=== PATIENT | male | born 1960 | race Caucasian/White ===

== ENCOUNTER 2020-02-10 18:28 | Observation (INO) | payer OTHER ==
--- NOTE | 2020-02-10 18:57 | ER Document Report ---
ED Medical Screen (RME) - General Chief Complaint: Dizziness Stated Complaint: DIZZINESS Time Seen by Provider: 02/10/20 18:44 Information source: Patient Notes: Patient states he was sitting in the chair and had a sudden flash of light through his vision at about 5:30 PM and suddenly developed headache pain dizziness became diaphoretic and had nausea and vomiting. Patient states he has a heaviness in his head and his right arm. Patient also reports discomfort in the chest that he describes as a heaviness. hx: Hypertension, RA, diabetes, neuropathy I have greeted and performed a rapid initial assessment of this patient. A comprehensive ED assessment and evaluation of the patient, analysis of test results and completion of the medical decision making process will be conducted by additional ED providers. - Related Data Allergies/Adverse Reactions: No Known Allergies Allergy (Unverified 02/10/20 18:46) Physical Exam - Neurological Gerda Coma Scale Eye Opening: Spontaneous Frederick Coma Scale Verbal: Oriented Gerda Coma Scale Motor: Obeys Commands Gerda Coma Scale Total: 15 Speech: Normal Course - Re-evaluation Re-evalutation: 02/10/20 18:57 Stroke evaluation initiated, bedside nurse as well as charge nurse advised.
[2020-02-10 19:14] LABS: ABSOLUTE EOSINOPHILS # (AUTO) 0.1 10^3/uL (0.0-0.6); ABSOLUTE LYMPHOCYTES (AUTO) 1.5 10^3/uL (0.5-4.7); ABSOLUTE MONOCYTES (AUTO) 0.4 10^3/uL (0.1-1.4); ABSOLUTE NEUT (AUTO) 8.7 10^3/uL (1.7-8.2); BASOPHILS % (AUTO) 0.3 % (0-2); EOSINOPHILS % (AUTO) 0.5 % (0-6); HEMATOCRIT 37.7 % (37.9-51.0); HEMOGLOBIN 13.4 g/dL (13.5-17.0); LYMPHOCYTES % (AUTO) 14.2 % (13-45); MEAN CORPUSCULAR HEMOGLOBIN 30.2 pg (27.0-33.4); MEAN CORPUSCULAR HGB CONC 35.5 g/dL (32.0-36.0); MEAN CORPUSCULAR VOLUME 85 fl (80-97); MONOCYTES % (AUTO) 3.4 % (3-13); PLATELET COUNT 178 10^3/uL (150-450); RED BLOOD COUNT 4.42 10^6/uL (4.35-5.55); RED CELL DISTRIBUTION WIDTH 15.7 % (11.5-14.0); SEGMENTED NEUTROPHILS % (AUTO) 81.6 % (42-78); TOTAL CELLS COUNTED % (AUTO) 100 %; WHITE BLOOD COUNT 10.7 10^3/uL (4.0-10.5)
[2020-02-10 19:25] LABS: ALBUMIN 4.3 g/dL (3.5-5.0); ALKALINE PHOSPHATASE 104 U/L (38-126); ANION GAP 11 (5-19); ASPARTATE AMINO TRANSFERASE 43 U/L (17-59); BILIRUBIN,TOTAL 0.5 mg/dL (0.2-1.3); BLOOD UREA NITROGEN 25 mg/dL (7-20); CALCIUM 9.4 mg/dL (8.4-10.2); CARBON DIOXIDE 22 mmol/L (22-30); CHLORIDE 107 mmol/L (98-107); CREATINE KINASE 45 U/L (55-170); GLUCOSE 189 mg/dL (75-110); POTASSIUM 3.7 mmol/L (3.6-5.0); TOTAL PROTEIN 7.2 g/dL (6.3-8.2)
[2020-02-10 19:30] LABS: INTERNATIONAL RATION (INR) 1.09; PARTIAL THROMBOPLASTIN TIME 27.5 SEC (23.5-35.8); PROTHROMBIN TIME 14.1 SEC (11.4-15.4)
[2020-02-10 19:37] LABS: CREATINE KINASE MB 0.59 ng/mL (<4.55)
[2020-02-10 19:38] LABS: TROPONIN I < 0.012 ng/mL
--- NOTE | 2020-02-10 19:41 | RADIOLOGY REPORT (SQ) ---
EXAM DESCRIPTION: CT HEAD WITHOUT COMPLETED DATE/TIME: 02/10/2020 7:05 pm REASON FOR STUDY: ALEX, dizzy, vomiting COMPARISON: None. TECHNIQUE: Axial images acquired through the brain without intravenous contrast. Images reviewed wit h bone, brain and subdural windows. Images stored on PACS. All CT scanners at this facility use dose modulation, iterative reconstruction, and/or weight based d osing when appropriate to reduce radiation dose to as low as reasonably achievable (ALARA). [facility]: Dose Right [facility]: CareDose [facility]: Dose Right [facility]: Teradose 4D [facility]: Smart Burt RADIATION DOSE: CT Rad equipment meets quality standard of care and radiation dose reduction techniq ues were employed. CTDIvol: 53.2 mGy. DLP: 1177 mGy-cm.. LIMITATIONS: None. FINDINGS: VENTRICLES: Normal size and contour. CEREBRUM: No hemorrhage. No midline shift. Scattered chronic appearing hyper densities are noted in the white matter. No evidence for acute large vessel infarction. CEREBELLUM: No masses. No hemorrhage. No alteration of density. No evidence for acute infarction. EXTRA-AXIAL SPACES: No fluid collections. ORBITS AND GLOBE: No intra- or extraconal masses. Normal contour of globe without masses. CALVARIUM: No fracture. PARANASAL SINUSES: No fluid or mucosal thickening. SOFT TISSUES: No mass or hematoma. OTHER: No other significant finding. IMPRESSION: No hemorrhage. No midline shift. Scattered chronic appearing hyper densities are noted in the white matter, this may reflect small vessel ischemic changes or possibly demyelinating disease , correlate with clinical information. No evidence for acute large vessel infarction. EVIDENCE OF ACUTE STROKE: NO. TECHNICAL DOCUMENTATION: JOB ID: [id number] Quality ID # [id number]: Final reports with documentation of one or more dose reduction techniques (e.g., Au tomated exposure control, adjustment of the mA and/or kV according to patient size, use of iterative reconstruction technique) 2010 [employer]- All Rights Reserved Reading location - IP/workstation name: [email or web address]
--- NOTE | 2020-02-10 19:46 | RADIOLOGY REPORT (SQ) ---
EXAM DESCRIPTION: CHEST SINGLE VIEW COMPLETED DATE/TIME: 02/10/2020 7:20 pm REASON FOR STUDY: chest pain COMPARISON: None. TECHNIQUE: Single frontal radiographic view of the chest acquired. NUMBER OF VIEWS: One view. LIMITATIONS: None. FINDINGS: LUNGS AND PLEURA: No pneumothorax. No consolidation or pleural effusion. MEDIASTINUM AND HILAR STRUCTURES: No contour abnormalities. HEART AND VASCULAR STRUCTURES: Heart normal size. BONES: No acute findings. HARDWARE: None in the chest. OTHER: No other significant finding. IMPRESSION: NO ACUTE FINDINGS. TECHNICAL DOCUMENTATION: JOB ID: [id number] [place]-72 2010 [email or web address]- All Rights Reserved Reading location - IP/workstation name: [email or web address]
[2020-02-10] MEDS ORDERED: ASPIRIN 325 MG TABLET PO ONE (20:37)
[2020-02-10] MEDS ORDERED: ONDANSETRON HCL INJ/PF 4 MG/2 ML SDV IV ONE (20:37)
[2020-02-10] MEDS ORDERED: NORMAL SALINE 500 ML IV ONE (20:38)
--- NOTE | 2020-02-10 20:41 | ER Document Report ---
ED Dizziness/Weakness - General Chief Complaint: S/S of Possible Stroke Stated Complaint: DIZZINESS Time Seen by Provider: 02/10/20 18:44 Mode of Arrival: Medic Information source: Patient Notes: 59-year-old man presents to the emergency department history of sudden onset of dizziness, weakness and nausea with vomiting at approximately 5 PM today. States he was watching TV when as sudden flash of discomfort hit his head, he complained of headache with blurring of vision, weakness greater on the right side and nausea with multiple episodes of vomiting. He was able to call 911 and was brought to the emergency department as a possible stroke. Patient has a history of hypertension and diabetes mellitus. He states that his symptoms were severe, unable to see or balance himself at first. - Related Data Allergies/Adverse Reactions: No Known Allergies Allergy (Unverified 02/10/20 18:46) Past Medical History - General Information source: Patient - Social History Smoking Status: Never Smoker Family History: Reviewed & Not Pertinent Patient has suicidal ideation: No Patient has homicidal ideation: No - Past Medical History Cardiac Medical History: Reports: Hx Hypertension Endocrine Medical History: Reports: Hx Diabetes Mellitus Type 2 Review of Systems - Review of Systems Notes: Constitutional: Negative for fever. HENT: Negative for sore throat. Eyes: Negative for visual changes. Cardiovascular: Negative for chest pain. Respiratory: Negative for shortness of breath. Negative cough Gastrointestinal: + Nausea, + vomiting episodes Genitourinary: Negative for dysuria. Musculoskeletal: Negative for back pain. Skin: Negative for rash. Neurological: +headaches, +weakness, + dizziness, + wearing a vision 10 point ROS negative except as marked above and in HPI. Physical Exam - Vital signs Vitals: Pulse Ox 100 02/10/20 18:28 - Notes Notes: PHYSICAL EXAMINATION: Physical Exam: General: Well-nourished well-developed 59-year-old man in no acute distress HEENT: NC/AT, pupils equal round and reactive to light, MM moist,nares clear, oropharynx clear, airway patent, no facial asymmetry Neck: supple, no adenopathy, no masses. Good range of motion Lungs: clear, no wheezing, no rales no rhonchi CVS: Regular rate and rhythm no murmur gallop or rub Abdomen: Soft, active, nontender, no masses, no hepatosplenomegaly Ext: No edema, clubbing or cyanosis. Neuro: Alert and responsive, moving all 4 extremities on command, cranial nerves intact, Normal speech, 5 out of 5 strength in both the distal and proximal upper and lower extremities bilaterally. Sensation is grossly intact throughout. F vandana to nose testing normal. Pronator drift normal. Skin: Intact no open lesions, no rash PSYCH: Normal mood, normal affect. Course - Re-evaluation Re-evalutation: 02/10/20 21:22 Patient has improved significantly after IV Zofran and aspirin. Given him a [address] scan negative for acute stroke findings, scattered densities in the white matter, may represent small vessel ischemic changes or possibly demyelinating disease. Patient had no known history of abnormal findings. I have discussed with the patient being brought into the hospital and having further evaluation and treatment for possible TIA. Patient is in agreement with that plan and the hospitalist is contacted. will admit the patient to the hospital for further evaluation and treatment. 02/10/20 21:27 Patient has NIH score of 0, he is not a candidate for TPA, headache, dizziness, blurred vision and weakness have resolved. 02/11/20 01:23 Patient was initially admitted, however, it was discovered that the MRI machine is down indefinitely. Was asked see if the patient can be transferred to a another facility. [facility] and spoke with the hospitalist Dr. Nicole. Dr. Nicole notes that given the patient's improvement of symptoms, he believes that the patient could be admitted at [facility] for Dopplers, monitoring, echo and if we are concerned about posterior circulation CTA. He is stated that we should contact the neurologist to see if neurologist has a strong concern regarding MRI. Neurology supervisor photocomposition provider Ms. Michael WILLSON was contacted and after a discussion of the patient agreed that MRI was not needed and this particular case given the transient nature of symptoms and resolution. I am contacting the hospitalist, and explained that the hospitalist and neurologist at [facility] position that "MRI is not vital in the work-up of this resolved symptom neurologic presentation". states that if the patient is understanding he will not get an MRI and is comfortable staying at [facility] he will admit him here. I have explained to the patient that we have no MRI machine, that neurology and hospitalist at [facility] are of the opinion that an MRI is not essential at this time. The patient states that he is fine with staying at [facility]. I have spoken with , he will admit the patient. - Vital Signs Vital signs: Temp Pulse Resp BP Pulse Ox 97.7 F 69 15 127/73 H 98 02/10/20 18:35 02/10/20 19:19 02/11/20 01:01 02/11/20 01:01 02/11/20 00:01 - Laboratory Result Diagrams: 02/10/20 18:54 02/10/20 18:54 Laboratory results interpreted by me: 02/10/20 02/10/20 02/10/20 18:54 18:54 21:50 WBC 10.7 H Hgb 13.4 L Hct 37.7 L RDW 15.7 H Absolute Neuts (auto) 8.7 H Seg Neutrophils % 81.6 H BUN 25 H Glucose 189 H ALT 58 H Creatine Kinase 45 L 44 L 02/10/20 21:25 I have reviewed laboratory data and used this information for the treatment decisions regarding the patient. - Diagnostic Test Radiology reviewed: Image reviewed, Reports reviewed - Chest x-ray: No acute ca rdiopulmonary findings CT head without contrast: Scattered densities in the white matter, may represent small vessel ischemic changes or possibly demyelinating disease. No findings of acute large vessel stroke. - EKG Interpretation by [place] EKG shows normal: Sinus rhythm - Rate 75, multiple PVCs, no acute ST or T wave abnormalities seen. Discharge - Discharge Clinical Impression: Transient neurological symptoms, Dizziness, Blurred vision, bilateral Headache Qualifiers: Headache type: unspecified Headache chronicity pattern: episodic headache Intractability: not intractable Qualified Code(s): R51 - Headache Condition: Good Disposition: ADMITTED INPATIENT Admitting Provider: Liliya (Hospitalist) Unit Admitted: [facility]
--- NOTE | 2020-02-10 21:38 | EKG REPORT ---
SEVERITY:- ABNORMAL ECG - SINUS RHYTHM : Confirmed by: Neil Aparicio MD 10-Feb-2020 21:37:26
[2020-02-10] MEDS ORDERED: ONDANSETRON HCL INJ/PF 4 MG/2 ML SDV IV PRN (22:11)
[2020-02-10] MEDS ORDERED: MAGNESIUM HYDROXIDE SUSP 30 ML UDCUP PO PRN (22:11)
[2020-02-10] MEDS ORDERED: LORAZEPAM INJ 2 MG/1 ML VIAL IV PRN (22:20)
[2020-02-10] MEDS ORDERED: MAG HYDROX/AL HYDROX/SIMETH SUSP 30 ML UDCUP PO PRN (22:20)
[2020-02-10] MEDS ORDERED: ACETAMINOPHEN 325 MG TABLET PO PRN (22:20)
[2020-02-10] MEDS ORDERED: HYDRALAZINE HCL INJ/PF 20 MG/1 ML SDV IV PRN (22:20)
[2020-02-10] MEDS ORDERED: GLUCAGON,HUMAN RECOMB 1 MG INJ IM PRN (22:21)
[2020-02-10] MEDS ORDERED: DEXTROSE 50%-WATER 25 GM/50 ML DISP.SYRIN IV PRN ×2 (22:21)
[2020-02-10] MEDS ORDERED: DEXTROSE 40% GEL 15 GM TUBE PO PRN ×2 (22:21)
[2020-02-11] MEDS: CLOPIDOGREL BISULFATE 75 MG TABLET PO SCH ×2 (00:31→09:41)
[2020-02-11] MEDS: FAMOTIDINE 20 MG TABLET PO SCH ×3 (00:31→22:33)
[2020-02-11] MEDS: INSULIN REG, HUMAN 100 UNIT/ML 3 ML VIAL (PYX) SUBCUT SCH ×5 (00:38→22:33)
[2020-02-11 04:36] LABS: HEMATOCRIT 34.3 % (37.9-51.0); HEMOGLOBIN 12.1 g/dL (13.5-17.0); MEAN CORPUSCULAR HEMOGLOBIN 30.2 pg (27.0-33.4); MEAN CORPUSCULAR HGB CONC 35.2 g/dL (32.0-36.0); MEAN CORPUSCULAR VOLUME 86 fl (80-97); PLATELET COUNT 146 10^3/uL (150-450); RED CELL DISTRIBUTION WIDTH 15.6 % (11.5-14.0); WHITE BLOOD COUNT 8.8 10^3/uL (4.0-10.5)
[2020-02-11 04:58] LABS: ANION GAP 9 (5-19); BLOOD UREA NITROGEN 24 mg/dL (7-20); CALCIUM 8.8 mg/dL (8.4-10.2); CARBON DIOXIDE 21 mmol/L (22-30); CHLORIDE 110 mmol/L (98-107); CHOLESTEROL 108.76 mg/dL (0-200); CREATINE KINASE 41 U/L (55-170); GLUCOSE 135 mg/dL (75-110); POTASSIUM 3.8 mmol/L (3.6-5.0); TRIGLYCERIDES 166 mg/dL (<150)
--- NOTE | 2020-02-11 05:03 | PDOC H&P ---
History of Present Illness Admission Date/PCP: 02/10/20 21:27 No local PCP Patient complains of: Dizziness History of Present Illness: HIGINIO PRATT is a 59 year old male who presented to the emergency room with acute dizziness. Patient admits that at about 5:30 PM on the day of admission he developed a sudden flash "like lightning" in both eyes lasting for just a fraction of a second. After the flash of lightning he immediately developed severe dizziness (vertigo) and an associated severe headache. He also developed the accompanying symptoms of bilateral blurred vision, nausea with vomiting, diaphoresis and a vague whole-body weakness/heaviness. He denies other associated or accompanying signs and symptoms. He denies prior similar episodes. He has not identified any aggravating or ameliorating factors for his dizziness. In the emergency room his symptoms gradually improved over the course of approximately 3 hours with near complete resolution by the time of admission. A CT scan of the head was negative for acute intracranial hemorrhage or evidence of acute CVA. The patient was subsequently admitted to the hospital for further evaluation and treatment per the stroke protocol on [facility]. Past Medical History Cardiac Medical History: Reports: Hypertension Denies: Atrial Fibrillation, Congestive Heart Failure, Coronary Artery Di sease, Myocardial Infarction, Hyperlipidema Pulmonary Medical History: Denies: Asthma, Chronic Obstructive Pulmonary Disease (COPD) EENT Medical History: Denies: Cataracts, Ears - Hearing aids Neurological Medical History: Reports: Other - Diabetic peripheral neuropathy Denies: Hemorrhagic CVA, Ischemic CVA, Seizures Endocrine Medical History: Reports: Diabetes Mellitus Type 2, Obesity Denies: Diabetes Mellitus Type 1, Hyperthyroidism, Hypothyroidism Renal/ Medical History: Denies: Chronic Kidney Disease, Nephrolithiasis Malignancy Medical History: Reports: None GI Medical History: Denies: Cirrhosis, Crohn's Disease, Hepatitis, Ulcerative Colitis Musculoskeltal Medical History: 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 Denies: Gout Skin Medical History: Denies: Eczema, Psoriasis Psychiatric Medical History: Reports: Depression Denies: Alcohol Dependency, Substance Abuse, Tobacco Dependency Traumatic Medical History: Reports: None Hematology: Denies: Anemia, Bleeding Tendencies Infectious Medical History: Reports: None Past Surgical History Past Surgical History: Reports: Tonsillectomy, Other - Right patella fracture surgery, multiple foot/toe surgeries Social History Information Source: Patient Lives with: Spouse/Significant other Smoking Status: Never Smoker Electronic Cigarette use?: No Frequency of Alcohol Use: None Hx Recreational Drug Use: No Drugs: None Hx Prescription Drug Abuse: No - Advance Directive Resuscitation Status: Full Code Surrogate healthcare decision maker:: Kamilla Pratt Family History Family History: CAD, CVA, DM, Hypertension. denies: Malignancy Parental Family History Reviewed: Yes Children Family History Reviewed: No Sibling(s) Family History Reviewed.: Yes Medication/Allergy Allergies/Adverse Reactions: No Known Allergies Allergy (Unverified 02/10/20 18:46) Review of Systems Constitutional: PRESENT: as per HPI, headache(s), weakness. ABSENT: chills, fever(s) Eyes: PRESENT: as per HPI, visual disturbances. ABSENT: other - Eye pain Ears: ABSENT: hearing changes, other - Ear pain Nose, Mouth, and Throat: PRESENT: as per HPI, headache(s), vertigo. ABSENT: sore throat Cardiovascular: PRESENT: as per HPI, chest pain. ABSENT: dyspnea on exertion, edema, orthropnea, palpitations Respiratory: ABSENT: cough, dyspnea Gastrointestinal: PRESENT: nausea, vomiting. ABSENT: abdominal pain, constipation, diarrhea Genitourinary: ABSENT: dysuria, hematuria Musculoskeletal: ABSENT: back pain, joint swelling Integumentary: PRESENT: diaphoresis. ABSENT: as per HPI, pruritus, rash Neurological: PRESENT: as per HPI, dizziness, focal weakness, numbness - Secondary to diabetic neuropathy of the bilateral lower legs, vertigo, weakness. ABSENT: confusion, convulsions, memory loss, syncope Psychiatric: ABSENT: anxiety, depression Endocrine: ABSENT: cold intolerance, heat intolerance, polydipsia, polyphagia, polyuria Hematologic/Lymphatic: ABSENT: easy bleeding, easy bruising Allergic/Immunologic: ABSENT: seasonal rhinorrhea Physical Exam Vital Signs: Temp Pulse Resp BP Pulse Ox 97.7 F 69 11 L 148/91 H 99 02/10/20 18:35 02/10/20 19:19 02/10/20 20:17 02/10/20 20:17 02/10/20 20:17 Intake & Output 02/08/20 02/09/20 02/10/20 23:59 23:59 23:59 Weight 127.006 kg General appearance: PRESENT: no acute distress, cooperative, obese Head exam: PRESENT: atraumatic, normocephalic Eye exam: PRESENT: conjunctiva pink, nystagmus - Moderate lateral nystagmus at the time of my evaluation. ABSENT: conjunctival injection, scleral icterus Ear exam: PRESENT: normal external ear exam. ABSENT: bleeding, drainage Mouth exam: PRESENT: dry mucosa, neck supple Neck exam: PRESENT: full ROM. ABSENT: meningismus, thyromegaly, tracheal deviation Respiratory exam: PRESENT: clear to auscultation [place], symmetrical, unlabored Cardiovascular exam: PRESENT: RRR. ABSENT: clicks, gallop, rubs Pulses: PRESENT: normal radial pulses, normal dorsalis pedis pul Vascular exam: PRESENT: normal capillary refill. ABSENT: pallor GI/Abdominal exam: PRESENT: normal bowel sounds, soft. ABSENT: tenderness Rectal exam: PRESENT: deferred Extremities exam: ABSENT: joint swelling, pedal edema Musculoskeletal exam: ABSENT: deformity, dislocation Neurological exam: PRESENT: alert, oriented to person, oriented to place, oriented to time, oriented to situation, motor sensory deficit - Bilateral absent tactile and pain sensation in feet and distal lower extremities. ABSENT: CN II-XII grossly intact - Nystagmus noted Psychiatric exam: PRESENT: appropriate affect, normal mood Skin exam: PRESENT: dry, intact, warm. ABSENT: jaundice, rash, urticaria Results Laboratory Results: 02/10/20 18:54 02/10/20 18:54 02/10/20 02/10/20 18:54 18:54 WBC 10.7 H RBC 4.42 Hgb 13.4 L Hct 37.7 L MCV 85 MCH 30.2 MCHC 35.5 RDW 15.7 H Plt Count 178 Seg Neutrophils % 81.6 H Sodium 140.3 Potassium 3.7 Chloride 107 Carbon Dioxide 22 Anion Gap 11 BUN 25 H Creatinine 0.85 Est GFR ( Amer) > 60 Glucose 189 H Calcium 9.4 Total Bilirubin 0.5 AST 43 Alkaline Phosphatase 104 Total Protein 7.2 Albumin 4.3 02/10/20 02/10/20 18:54 18:54 Creatine Kinase 45 L CK-MB (CK-2) 0.59 Troponin I < 0.012 Impressions: Chest X-Ray 02/10/20 18:47 IMPRESSION: NO ACUTE FINDINGS. Head CT 02/10/20 18:52 IMPRESSION: No hemorrhage. No midline shift. Scattered chronic appearing hyper densities are noted in the white matter, this may reflect small vessel ischemic changes or possibly demyelinating disease, correlate with clinical information. No evidence for acute large vessel infarction. EVIDENCE OF ACUTE STROKE: NO. Assessment and Plan - Diagnosis (1) Dizziness Is this a current diagnosis for this admission?: Yes (2) Headache Qualifiers: Headache type: unspecified Headache chronicity pattern: episodic headache Intractability: not intractable Qualified Code(s): R51 - Headache Is this a current diagnosis for this admission?: Yes (3) Blurred vision, bilateral Is this a current diagnosis for this admission?: Yes (4) Hypertension Qualifiers: Hypertension type: essential hypertension Qualified Code(s): I10 - Essential (primary) hypertension Is this a current diagnosis for this admission?: Yes (5) Type 2 diabetes mellitus with obesity Is this a current diagnosis for this admission?: Yes (6) Diabetic peripheral neuropathy associated with type 2 diabetes mellitus Is this a current diagnosis for this admission?: Yes - Plan Summary Summary: Patient will be admitted to [facility] on the stroke protocol. Patient will have usual supportive and symptomatic cares. Carotid Doppler studies will be performed DASH. An echocardiogram will be obtained per protocol. Serial car diac enzymes will be obtained. Routine lab work per stroke protocol will be obtained. Patient will be placed on a cardiac and diabetic restricted diet. Activity level will be ad chely. Patient's usual medications for his chronic medical problems will be continued as appropriate. Additional medications may be added to the patient's current regiment or alterations in the patient's current regiment to fit the stroke protocol will be made as necessary. Patient will use Ativan 1 mg IV every 4 hours as needed for anxiety or restlessness. - Time Time Spent with patient: 25-34 minutes Medications reviewed and adjusted accordingly: Yes Anticipated discharge: Home - Inpatient Certification Based on my medical assessment, after consideration of the patient's comorbidities, presenting symptoms, or acuity I expect that the services needed warrant INPATIENT care.: Yes I certify that my determination is in accordance with my understanding of Medicare's requirements for reasonable and necessary INPATIENT services [42 CFR 412.3e].: Yes Medical Necessity: Significant Comorbidiites Make Outpatient Treatment Too Risky, Need Close Monitoring Due to Risk of Patient Decompensation, Need For Continuous Telemetry Monitoring, Need for Neurological Checks, Risk of Complication if Not Cared For in Hospital
[2020-02-11 05:21] LABS: DIRECT LDL 66 mg/dL (<100)
[2020-02-11 05:22] LABS: CREATINE KINASE MB 0.42 ng/mL (<4.55)
[2020-02-11 05:25] LABS: VLDL CHOLESTEROL 33.2 mg/dL (10-31)
[2020-02-11 05:26] LABS: TROPONIN I < 0.012 ng/mL
[2020-02-11] MEDS: HEPARIN SOD (PORCINE) 5,000 UNIT/ML 1 ML VIAL SUBCUT SCH ×3 (05:52→22:33)
[2020-02-11] MEDS: DOCUSATE SODIUM 100 MG CAPSULE PO SCH ×2 (09:41→17:44)
[2020-02-11 11:35] LABS: CREATINE KINASE MB 0.57 ng/mL (<4.55)
--- NOTE | 2020-02-11 11:42 | RADIOLOGY REPORT (SQ) ---
EXAM DESCRIPTION: CTA NECK COMPLETED DATE/TIME: 02/11/2020 11:28 am REASON FOR STUDY: stroke COMPARISON: None. TECHNIQUE: Axial dynamic scanning technique with dynamic contrast enhancement through the extra-aircraft rigging and controls mechanic nial carotid and vertebral arteries. Multiplanar reconstruction. 3-D MIPS and Volume-rendered imag es acquired at the workstation and saved to PACS. Images are reviewed in soft tissue, bone, lung w indows. All CT scanners at this facility use dose modulation, iterative reconstruction, and/or weight based d osing when appropriate to reduce radiation dose to as low as reasonably achievable (ALARA). [facility]: Dose Right [facility]: CareDose [facility]: Dose Right [facility]: Teradose 4D [facility]: [email or web address] CONTRAST TYPE AND DOSE: contrast/concentration: Isovue 350.00 mg/ml; Total Contrast Delivered: 80.0 ml; Total Saline Delivered: 75.0 ml RENAL FUNCTION: GFR > 60. LIMITATIONS: None. FINDINGS: AORTIC ARCH: Normal three-vessel origin. Bilateral subclavian arteries are patent. No d issection. RIGHT CAROTIDS: Patent common, internal and external carotid arteries without suggestion of significa nt stenosis or irregular plaque. No dissection. RIGHT VERTEBRAL: Patent. No dissection. LEFT CAROTIDS: Very low bifurcation of the carotid, essentially just above the level of the clavicle. No stenosis or dissection or significant plaque, however. LEFT VERTEBRAL: Patent. No dissection. OTHER: Lung apices are clear. No bone lesions detected. OTHER: 3-D reconstructions confirm findings. IMPRESSION: NORMAL CTA OF THE EXTRA-CRANIAL CAROTID AND VERTEBRAL ARTERIES. COMMENT: Quality ID #[id number]: Measurements of distal internal carotid diameter were used as the denomina tor for stenosis measurement. TECHNICAL DOCUMENTATION: JOB ID: [id number] Quality ID # 436: Final reports with documentation of one or more dose reduction techniques (e.g., Au tomated exposure control, adjustment of the mA and/or kV according to patient size, use of iterative reconstruction technique) 2010 [employer]- All Rights Reserved Reading location - IP/workstation name: [email or web address]
--- NOTE | 2020-02-11 11:44 | RADIOLOGY REPORT (SQ) ---
EXAM DESCRIPTION: CTA HEAD COMPLETED DATE/TIME: 02/11/2020 11:28 am REASON FOR STUDY: stroke COMPARISON: CT head without from yesterday. CTA of the neck, separately dictated. TECHNIQUE: Post IV contrast scanning, thin section axial imaging through the brain to evaluate the a rterial structures. Source and MIP images are saved and reviewed on PACS. Advanced 3D imaging as volume-rendering, MIPs, SSD performed? yes All CT scanners at this facility use dose modulation, iterative reconstruction, and/or weight based d osing when appropriate to reduce radiation dose to as low as reasonably achievable (ALARA). [facility]: Dose Right [facility]: CareDose [facility]: Dose Right [facility]: Teradose 4D [facility]: [employer] RENAL FUNCTION: GFR > 60. LIMITATIONS: None. FINDINGS: [place]: The anterior, middle, posterior cerebral arteries are all patent. No ev idence of aneurysm or focal stenosis. POSTERIOR CIRCULATION: The distal vertebral arteries are patent as is the basilar artery. No aneurysm . BRAIN: No enhancing lesions. BONES: Intact as visualized. SINUSES: No fluid or mucosal thickening. OTHER: No other significant finding. IMPRESSION: NO CTA EVIDENCE OF STENOSIS OR ANEURYSM OF THE [place]. TECHNICAL DOCUMENTATION: JOB ID: [id number] Quality ID # 436: Final reports with documentation of one or more dose reduction techniques (e.g., Au tomated exposure control, adjustment of the mA and/or kV according to patient size, use of iterative reconstruction technique) 2010 [employer]- All Rights Reserved Reading location - IP/workstation name: [email or web address]
[2020-02-11 11:45] LABS: TROPONIN I < 0.012 ng/mL
--- NOTE | 2020-02-11 13:06 | PDOC PROGRESS REPORT ---
Subjective Progress Note for:: 02/11/20 Subjective:: History of Present Illness: HIGINIO PRATT is a 59 year old male who presented to the emergency room with acute dizziness. Patient admits that at about 5:30 PM on the day of admission he developed a sudden flash "like lightning" in both eyes lasting for just a fraction of a second. After the flash of lightning he immediately developed severe dizziness (vertigo) and an associated severe headache. He also developed the accompanying symptoms of bilateral blurred vision, nausea with vomiting, diaphoresis and a vague whole-body weakness/heaviness. He denies other associated or accompanying signs and symptoms. He denies prior similar episodes. He has not identified any aggravating or ameliorating factors for his dizziness. In the emergency room his symptoms gradually improved over the course of approximately 3 hours with near complete resolution by the time of admission. A CT scan of the head was negative for acute intracranial hemorrhage or evidence of acute CVA. The patient was subsequently admitted to the hospital for further evaluation and treatment per the stroke protocol on [facility]. Interval history: 02/11/2020: Patient seen and examined. He is significantly improving. Still have some dizziness and visual abnormalities but significantly improved from yesterday. He is not vomiting. Reason For Visit: TRANSIENT NEUROLOGICAL SYMPTOMS,DIZZINESS,BLURRED Physical Exam Vital Signs: Temp Pulse Resp BP Pulse Ox 97.9 F 83 16 116/83 100 02/11/20 11:09 02/11/20 11:09 02/11/20 11:09 02/11/20 11:09 02/11/20 11:09 Intake & Output 02/10/20 02/11/20 02/12/20 06:59 06:59 06:59 Intake Total 900 Balance 900 Weight 238 lb 1.588 oz 238 lb 1.588 oz Exam: Patient is no acute distress Alert oriented to time place person No anxiety or depression Head: atraumatic normocephalic Pupils: are equal reactive Neck: is supple and trachea is central no lymphadenopathy No pharyngeal erythema or exudates Heart: Regular rate and rhythm, no peripheral edema Lungs: clear to auscultation, no respiratory distress Abdomen: nontender nondistended Neurological exam: unremarkable Musculoskeletal: No joint swelling or effusion chronic lower back pain and tenderness No suicidal or homicidal ideation Results Laboratory Results: 02/11/20 04:28 02/11/20 04:28 02/10/20 02/10/20 02/11/20 18:54 18:54 04:28 WBC 10.7 H RBC 4.42 Hgb 13.4 L Hct 37.7 L MCV 85 MCH 30.2 MCHC 35.5 RDW 15.7 H Plt Count 178 Seg Neutrophils % 81.6 H Sodium 140.3 139.5 Potassium 3.7 3.8 Chloride 107 110 H Carbon Dioxide 22 21 L Anion Gap 11 9 BUN 25 H 24 H Creatinine 0.85 0.68 Est GFR ( Amer) > 60 > 60 Glucose 189 H 135 H Calcium 9.4 8.8 Total Bilirubin 0.5 AST 43 Alkaline Phosphatase 104 Total Protein 7.2 Albumin 4.3 Triglycerides 166 H Cholesterol 108.76 LDL Cholesterol Direct 66 VLDL Cholesterol 33.2 H HDL Cholesterol 31 L 02/11/20 04:28 WBC 8.8 RBC 4.00 L Hgb 12.1 L Hct 34.3 L MCV 86 MCH 30.2 MCHC 35.2 RDW 15.6 H Plt Count 146 L Seg Neutrophils % Sodium Potassium Chloride Carbon Dioxide Anion Gap BUN Creatinine Est GFR ( Amer) Glucose Calcium Total Bilirubin AST Alkaline Phosphatase Total Protein Albumin Triglycerides Cholesterol LDL Cholesterol Direct VLDL Cholesterol HDL Cholesterol 02/10/20 02/10/20 02/10/20 18:54 18:54 21:30 Creatine Kinase 45 L CK-MB (CK-2) 0.59 Troponin I < 0.012 < 0.012 02/10/20 02/10/20 02/11/20 21:50 21:50 04:28 Creatine Kinase 44 L 41 L CK-MB (CK-2) 0.56 Troponin I Cancelled 02/11/20 02/11/20 02/11/20 04:28 10:38 10:38 Creatine Kinase 40 L CK-MB (CK-2) 0.42 0.57 Troponin I < 0.012 < 0.012 Impressions: Chest X-Ray 02/10/20 18:47 IMPRESSION: NO ACUTE FINDINGS. Head CT 02/10/20 18:52 IMPRESSION: No hemorrhage. No midline shift. Scattered chronic appearing hyper densities are noted in the white matter, this may reflect small vessel ischemic changes or possibly demyelinating disease, correlate with clinical information. No evidence for acute large vessel infarction. EVIDENCE OF ACUTE STROKE: NO. Head CTA 02/11/20 00:00 IMPRESSION: NO CTA EVIDENCE OF STENOSIS OR ANEURYSM OF THE [place]. Neck CTA 02/11/20 00:00 IMPRESSION: NORMAL CTA OF THE EXTRA-CRANIAL CAROTID AND VERTEBRAL ARTERIES. Assessment and Plan - Plan Summary Summary: TIA versus stroke CTA head and neck unremarkable. CT of the head negative for acute stroke. Considering the patient risk factors and clinical picture highly suspicious for possible circulation stroke. MRI machine is broken. Repeat CT scan of the head tomorrow. Follow-up echocardiogram. Discussed with neurologist social organization professor from [facility]. Possible discharge on 3 weeks course of dual antiplatelet treatment. Vertigo Improved. Monitor. Hypertension Avoid hypotension. Continue current medications. Diabetes A1c 6.8. Monitor glucose levels. Continue current medications. Peripheral diabetic neuropathy
[2020-02-11] MEDS: NORMAL SALINE 1000 ML 1,000 ML IV PRN (13:21)
[2020-02-11] MEDS: MULTIVITAMIN TABLET PO SCH (17:50)
--- NOTE | 2020-02-11 21:45 | RADIOLOGY REPORT (SQ) ---
EXAM DESCRIPTION: CLINICAL HISTORY: 59 years Male Acute onset dizziness, headache, blurred vision. CVA. COMPARISON: CT of the head from yesterday. TECHNIQUE: Multisequence multiplanar images of the brain without gadolinium. FINDINGS: Normal size ventricles. No suspicious cortical atrophy. No abnormal diffusion. Advanced bilateral white matter nodular high signal intensity lesions on T2 and FLAIR images. No suspicious findings on T1-weighted images. No suspicious findings in the brainstem and cerebellar peduncles. Gradient echo images without suspicious hemorrhage.. Minimal thickening in the anterior paranasal sinuses. Pituitary gland is not enlarged. IMPRESSION: Advanced for age periventricular white matter disease. No obvious involvement of the brainstem or cerebellar peduncles. More likely advanced small vessel disease and less likely demyelinating disease. Patient does demonstrate thin calcifications in the kang of the distal vertebral and distal internal carotid arteries. Is there history of diabetes?
[2020-02-11] MEDS ORDERED: ATORVASTATIN CALCIUM 40 MG TABLET PO SCH (22:00)
[2020-02-11] MEDS: BUPROPION HCL 100 MG TABLET PO SCH (22:33)
[2020-02-11] MEDS: SERTRALINE HCL 50 MG TABLET PO SCH (22:34)
[2020-02-12] MEDS: NORMAL SALINE 1000 ML 1,000 ML IV PRN (02:45)
[2020-02-12] MEDS: HEPARIN SOD (PORCINE) 5,000 UNIT/ML 1 ML VIAL SUBCUT SCH (05:16)
[2020-02-12] MEDS: INSULIN REG, HUMAN 100 UNIT/ML 3 ML VIAL (PYX) SUBCUT SCH (08:41)
[2020-02-12] MEDS: SERTRALINE HCL 50 MG TABLET PO SCH (09:43)
[2020-02-12] MEDS: MULTIVITAMIN TABLET PO SCH (09:43)
[2020-02-12] MEDS: DOCUSATE SODIUM 100 MG CAPSULE PO SCH (09:44)
[2020-02-12] MEDS: BUPROPION HCL 100 MG TABLET PO SCH (09:44)
[2020-02-12] MEDS: CLOPIDOGREL BISULFATE 75 MG TABLET PO SCH (09:44)
[2020-02-12] MEDS: FAMOTIDINE 20 MG TABLET PO SCH (09:44)
[2020-02-12] MEDS ORDERED: FOLIC ACID 1 MG TABLET PO SCH (10:00)
[2020-02-12] MEDS ORDERED: MV MN PO SCH (10:00)
[2020-02-12] MEDS ORDERED: IRON PO SCH (10:00)
[2020-02-12] MEDS ORDERED: HERB PO SCH (10:00)
[2020-02-12] MEDS ORDERED: FOLIC ACID PO SCH (10:00)
[2020-02-12] MEDS ORDERED: [UNRECOGNIZED DRUG - OTHER] PO SCH (10:00)
[2020-02-12] MEDS ORDERED: (PENDING PHARMACY ID) (Ferrous Sulfate [Slow Fe] 142 MG) PO SCH (10:00)
--- NOTE | 2020-02-12 10:32 | XCELERA REPORT ---
[address] [address] Transthoracic Echocardiogram Report Name: HIGINIO PRATT Age: 59 yrs Gender: Male : 1960 Patient Status: Inpatient Patient Location: [address] [place] [address] Study Date: 02/11/2020 08:19 AM Height: 77 in Weight: 280 lb BSA: 2.6 m2 Procedure: A two-dimensional transthoracic echocardiogram with color flow and Doppler was performed. Study Quality: Fair. Reason For Study: TIA/CVA History: TIA/CVA. Ordering Physician: JUAN PRATT Performed By: Mercedes Skaggs Interpretation Summary There is no obvious cardiac source of embolus noted on this transthoracic echocardiogram. Follow-up with a [facility] is suggested if cardiac source is still suspected. LV EF is 65% Doppler measurements suggest impaired left ventricular relaxation, which is associated with grade I/IV or mild diastolic dysfunction The left ventricular wall motion is normal. There is no thrombus. No ASD,VSD or PFO seen. The right ventricle is normal in size and function. The right atrium is normal. The left atrial size is normal. There is no evidence of mitral valve prolapse. There is no vegetation seen on the mitral valve. There is no mitral valve stenosis. There is a trace to mild amount of mitral regurgitation There is no aortic valvular vegetation. There is no aortic valve stenosis There is no LVOT obstruction. No aortic regurgitation is present. There is no tricuspid stenosis. There is a trace amount of tricuspid regurgitation Tricuspid regurgitation jet envelope not well defined to measure RV systolic pressure accurately. There is no pulmonic valvular stenosis. There is no pulmonic valvular regurgitation. The aortic root is normal size. The inferior vena cava appeared normal and decreased > 50% with respiration (RAP 5-10 mmHg) There is no pericardial effusion. There is no obvious cardiac source of embolus noted on this transthoracic echocardiogram. Follow-up with a [facility] is suggested if cardiac source is still suspected MMode/2D Measurements & Calculations RVDd: 2.1 cm LVIDd: 5.2 cm FS: 36.1 % Ao root diam: 3.1 cm IVSd: 1.2 cm LVIDs: 3.3 cm EDV(Teich): 130.1 ml Ao root area: 7.6 cm2 LVPWd: 1.2 cm ESV(Teich): 45.1 ml LA dimension: 3.5 cm EF(Teich): 65.4 % Doppler Measurements & Calculations MV E max pamela: MV P1/2t max pamela: Ao V2 max: LV V1 max P.0 cm/sec 95.4 cm/sec 161.8 cm/sec 7.6 mmHg MV A max pamela: MV P1/2t: 53.9 msec Ao max PG: LV V1 max: 84.7 cm/sec MVA(P1/2t): 4.1 cm2 10.5 mmHg 137.7 cm/sec MV E/A: 0.84 MV dec slope: 518.3 cm/sec2 MV dec time: 0.21 sec PA V2 max: MV P1/2t-pr_phl: 113.5 cm/sec 53.9 msec PA max P.2 mmHg Left Ventricle The left ventricle is normal in size. There is mild concentric left ventricular hypertrophy. LV EF is 65%. Left ventricular systolic function is normal. Doppler measurements suggest impaired left ventricular relaxation, which is associated with grade I/IV or mild diastolic dysfunction. The left ventricular wall motion is normal. There is no thrombus. No ASD,VSD or PFO seen. Right Ventricle The right ventricle is normal in size and function. Atria The right atrium is normal. The left atrial size is normal. Mitral Valve There is no evidence of mitral valve prolapse. There is no vegetation seen on the mitral valve. There is no mitral valve stenosis. There is a trace to mild amount of mitral regurgitation. Aortic Valve There is no aortic valvular vegetation. There is no aortic valve stenosis. There is no LVOT obstruction. No aortic regurgitation is present. Tricuspid Valve There is no tricuspid stenosis. There is a trace amount of tricuspid regurgitation. Tricuspid regurgitation jet envelope not well defined to measure RV systolic pressure accurately. Pulmonic Valve There is no pulmonic valvular stenosis. There is no pulmonic valvular regurgitation. Great Vessels The aortic root is normal size. The inferior vena cava appeared normal and decreased > 50% with respiration (RAP 5-10 mmHg). Effusions There is no pericardial effusion. : JUAN PRATT Lakshmi
--- NOTE | 2020-02-12 11:43 | PDOC DISCHARGE SUMMARY ---
Impression - Admit/DC Date/PCP Admission Date/Primary Care Provider: 02/11/20 01:29 Discharge Date: 02/12/20 - Discharge Diagnosis (1) Vertigo Is this a current diagnosis for this admission?: Yes (2) Diabetic peripheral neuropathy associated with type 2 diabetes mellitus Is this a current diagnosis for this admission?: Yes (3) Hypertension Is this a current diagnosis for this admission?: Yes (4) Type 2 diabetes mellitus with obesity Is this a current diagnosis for this admission?: Yes - Assessment Summary: Reason For Visit: TRANSIENT NEUROLOGICAL SYMPTOMS,DIZZINESS,BLURRED History of Present Illness: HIGINIO PRATT is a 59 year old male who presented to the emergency room with acute dizziness. Patient admits that at about 5:30 PM on the day of admission he developed a sudden flash "like lightning" in both eyes lasting for just a fraction of a second. After the flash of lightning he immediately developed severe dizziness (vertigo) and an associated severe headache. He also developed the accompanying symptoms of bilateral blurred vision, nausea with vomiting, diaphoresis and a vague whole-body weakness/heaviness. He denies other associated or accompanying signs and symptoms. He denies prior similar episodes. He has not identified any aggravating or ameliorating factors for his dizziness. In the emergency room his symptoms gradually improved over the course of approximately 3 hours with near complete resolution by the time of admission. A CT scan of the head was negative for acute intracranial hemorrhage or evidence of acute CVA. The patient was subsequently admitted to the hospital for further evaluation and treatment per the stroke protocol on [facility]. Interval history: 02/11/2020: Patient seen and examined. He is significantly improving. Still have some dizziness and visual abnormalities but significantly improved from yesterday. He is not vomiting. Physical examination: Patient is no acute distress Alert oriented to time place person No anxiety or depression Head: atraumatic normocephalic Pupils: are equal reactive Neck: is supple and trachea is central no lymphadenopathy No pharyngeal erythema or exudates Heart: Regular rate and rhythm, no peripheral edema Lungs: clear to auscultation, no respiratory distress Abdomen: nontender nondistended Neurological exam: unremarkable Musculoskeletal: No joint swelling or effusion chronic lower back pain and tenderness No suicidal or homicidal ideation Hospital course: Vertigo CTA head and neck unremarkable. CT and MRI of the head negative for acute stroke. Low risk echocardiogram. Discussed with neurologist director aeronautics commission from [facility]. Will discharge on oral meclizine as needed. Follow-up outpatient. Symptoms has resolved. Hypertension Continue current medications. Diabetes A1c 6.8. Monitor glucose levels. Continue current medications. Peripheral diabetic neuropathy - Additional Information Resuscitation Status: Full Code Discharge Diet: Diabetic Discharge Activity: Activity As Tolerated Prescriptions: Meclizine HCl [Wal-Dram 2] 25 mg PO TIDP PRN #20 tablet PRN Reason: Home Medications: Atorvastatin Calcium [Lipitor 40 mg Tablet] 40 mg PO QHS 02/11/20 Bupropion HCl [Wellbutrin 100 mg Tablet] 100 mg PO BID 02/11/20 Ferrous Sulfate [Slow Fe] 142 mg PO DAILY 02/11/20 Folic Acid [Folvite 1 mg Tablet] 1 mg PO DAILY 02/11/20 Glimepiride [Amaryl 4 mg Tablet] 4 mg PO BID 02/11/20 Insulin Glargine,Hum.rec.anlog [Carlo Borja] 60 unit SQ QAM 02/11/20 Methotrexate Sodium [Rheumatrex 2.5 mg Tablet] 10 mg PO FRSA@199902/11/20 Mv-Mn/Iron/Folic Acid/Herb 190 [Vitamin D3 Complete Caplet] 1 each PO DAILY 02/11/20 Prednisone [Tatianna] 5 mg PO Q2D PRN 02/11/20 Sertraline HCl 100 mg PO BID 02/11/20 Sitagliptin Phos/Metformin HCl [Janumet Xr 50-1,000 mg Tablet] 1 each PO BID 02/11/20 Meclizine HCl [Wal-Dram 2] 25 mg PO TIDP PRN #20 tablet 02/12/20 History of Present Illiness History of Present Illness: HIGINIO PRATT is a 59 year old male Physical Exam Vital Signs: Temp Pulse Resp BP Pulse Ox 98.4 F 75 18 158/84 H 99 02/12/20 08:05 02/12/20 08:05 02/12/20 08:05 02/12/20 08:05 02/12/20 08:05 Intake & Output 02/11/20 02/12/20 02/13/20 06:59 06:59 06:59 Intake Total 900 4120 Balance 900 4120 Weight 238 lb 1.588 oz 240 lb 11.916 oz Results Laboratory Results: WBC 8.8 10^3/uL (4.0-10.5) 02/11/20 04:28 RBC 4.00 10^6/uL (4.35-5.55) L 02/11/20 04:28 Hgb 12.1 g/dL (13.5-17.0) L 02/11/20 04:28 Hct 34.3 % (37.9-51.0) L 02/11/20 04:28 MCV 86 fl (80-97) 02/11/20 04:28 MCH 30.2 pg (27.0-33.4) 02/11/20 04:28 MCHC 35.2 g/dL (32.0-36.0) 02/11/20 04:28 RDW 15.6 % (11.5-14.0) H 02/11/20 04:28 Plt Count 146 10^3/uL (150-450) L 02/11/20 04:28 Lymph % (Auto) 14.2 % (13-45) 02/10/20 18:54 Gem % (Auto) 3.4 % (3-13) 02/10/20 18:54 Eos % (Auto) 0.5 % (0-6) 02/10/20 18:54 Baso % (Auto) 0.3 % (0-2) 02/10/20 18:54 Absolute Neuts (auto) 8.7 10^3/uL (1.7-8.2) H 02/10/20 18:54 Absolute Lymphs (auto) 1.5 10^3/uL (0.5-4.7) 02/10/20 18:54 Absolute Monos (auto) 0.4 10^3/uL (0.1-1.4) 02/10/20 18:54 Absolute Eos (auto) 0.1 10^3/uL (0.0-0.6) 02/10/20 18:54 Absolute Basos (auto) 0.0 10^3/uL (0.0-0.2) 02/10/20 18:54 Seg Neutrophils % 81.6 % (42-78) H 02/10/20 18:54 PT 14.1 SEC (11.4-15.4) 02/10/20 19:15 INR 1.09 02/10/20 19:15 INR (Anticoag Therapy) Cancelled 02/10/20 18:54 APTT 27.5 SEC (23.5-35.8) 02/10/20 19:15 Sodium 139.5 mmol/L (137-145) 02/11/20 04:28 Potassium 3.8 mmol/L (3.6-5.0) 02/11/20 04:28 Chloride 110 mmol/L (98-107) H 02/11/20 04:28 Carbon Dioxide 21 mmol/L (22-30) L 02/11/20 04:28 Anion Gap 9 (5-19) 02/11/20 04:28 BUN 24 mg/dL (7-20) H 02/11/20 04:28 Creatinine 0.68 mg/dL (0.52-1.25) 02/11/20 04:28 Est GFR ( Amer) > 60 (>60) 02/11/20 04:28 Est GFR (MDRD) Non-Af > 60 (>60) 02/11/20 04:28 Glucose 135 mg/dL (75-110) H 02/11/20 04:28 POC Glucose 159 mg/dL (70-110) H 02/12/20 08:04 Hemoglobin A1c % 6.8 % (4.7-6.0) H 02/11/20 04:28 Calcium 8.8 mg/dL (8.4-10.2) 02/11/20 04:28 Total Bilirubin 0.5 mg/dL (0.2-1.3) 02/10/20 18:54 Direct Bilirubin 0.0 mg/dL (0.0-0.4) 02/10/20 18:54 Neonat Total Bilirubin Not Reportable 02/10/20 18:54 Neonat Direct Bilirubin Not Reportable 02/10/20 18:54 Neonat Indirect Bili Not Reportable 02/10/20 18:54 AST 43 U/L (17-59) 02/10/20 18:54 ALT 58 U/L (<50) H 02/10/20 18:54 Alkaline Phosphatase 104 U/L (38-126) 02/10/20 18:54 Creatine Kinase 40 U/L (55-170) L 02/11/20 10:38 CK-MB (CK-2) 0.57 ng/mL (<4.55) 02/11/20 10:38 Troponin I < 0.012 ng/mL 02/11/20 10:38 Total Protein 7.2 g/dL (6.3-8.2) 02/10/20 18:54 Albumin 4.3 g/dL (3.5-5.0) 02/10/20 18:54 Triglycerides 166 mg/dL (<150) H 02/11/20 04:28 Cholesterol 108.76 mg/dL (0-200) 02/11/20 04:28 LDL Cholesterol Direct 66 mg/dL (<100) 02/11/20 04:28 VLDL Cholesterol 33.2 mg/dL (10-31) H 02/11/20 04:28 HDL Cholesterol 31 mg/dL (>40) L 02/11/20 04:28 02/10/20 02/10/20 02/10/20 18:54 21:30 21:50 CK-MB (CK-2) 0.59 0.56 Troponin I < 0.012 < 0.012 Cancelled 02/11/20 02/11/20 04:28 10:38 CK-MB (CK-2) 0.42 0.57 Troponin I < 0.012 < 0.012 Impressions: Chest X-Ray 02/10/20 18:47 IMPRESSION: NO ACUTE FINDINGS. Head CT 02/10/20 18:52 IMPRESSION: No hemorrhage. No midline shift. Scattered chronic appearing hyper densities are noted in the white matter, this may reflect small vessel ischemic changes or possibly demyelinating disease, correlate with clinical information. No evidence for acute large vessel infarction. EVIDENCE OF ACUTE STROKE: NO. Head CTA 02/11/20 00:00 IMPRESSION: NO CTA EVIDENCE OF STENOSIS OR ANEURYSM OF THE [place]. Head MRI 02/11/20 00:00 IMPRESSION: Advanced for age periventricular white matter disease. No obvious involvement of the brainstem or cerebellar peduncles. More likely advanced small vessel disease and less likely demyelinating disease. Patient does demonstrate thin calcifications in the kang of the distal vertebral and distal internal carotid arteries. Is there history of diabetes? Neck CTA 02/11/20 00:00 IMPRESSION: NORMAL CTA OF THE EXTRA-CRANIAL CAROTID AND VERTEBRAL ARTERIES. Stroke Is this a Stroke Patient?: No Acute Heart Failure - Is this a Heart Failure Patient?: No
[2020-02-12 12:02] VITALS: BP 127/73
--- NOTE | 2020-02-12 15:44 | RADIOLOGY REPORT (SQ) ---
EXAM DESCRIPTION: CAROTID DOPPLER COMPLETED DATE/TIME: 02/12/2020 1:27 pm REASON FOR STUDY: TIA/CVA COMPARISON: None. TECHNIQUE: Grayscale ultrasound, Doppler velocity and spectra, and color Doppler images acquired of the extra-cranial carotid and vertebral arteries. Images stored on PACS. LIMITATIONS: None. FINDINGS: RIGHT CAROTID CCA Velocities: Within normal limits. ICA Velocities Peak systolic 84 cm/s. End diastolic 38 cm/s. Proximal ICA/CCA peak systolic ratio 1.1. Spectra normal. No significant plaque. LEFT CAROTID CCA Velocities: Extremity low bifurcation. The common carotid cannot be imaged. ICA Velocities Peak systolic 105 cm/s. End diastolic 39 cm/s. Proximal ICA/CCA peak systolic ratio not available.. Spectra normal. No significant plaque. VERTEBRAL ARTERIES: Antegrade flow. Normal waveforms. SUBCLAVIAN ARTERIES: No finding. OTHER: No other significant finding. IMPRESSION: Extremely low left carotid bifurcation. No hemodynamically significant ICA stent stenos is. COMMENT: Quality ID #[id number]: Velocity criteria are extrapolated from the diameter data as defined by t he Society of Radiologists in Ultrasound Consensus Conference. Radiology 2003: 229; 340-346. TECHNICAL DOCUMENTATION: JOB ID: [id number] 2010 [employer] All Rights Reserved Reading location - IP/workstation name: [email or web address]
[2020-02-14] MEDS ORDERED: METHOTREXATE SODIUM 2.5 MG TABLET PO SCH (20:00)
== END 2020-02-12 12:20 | disposition home or self-care (01) ==
LOC: ER 18:28 → UNDOADMIN 21:27 → EH 21:27 → INTOOBSV 02-11 01:29 → EH 02-11 01:29 → 3W 02-11 02:18
PROVIDERS: ADMIT Emergency Medicine; ATTEND Family Medicine
DX: R42 Dizziness and giddiness (principal); E11.42 Type 2 diabetes mellitus with diabetic polyneuropathy; E66.9 Obesity, unspecified; I10 Essential (primary) hypertension; R51 Headache; H53.8 Other visual disturbances; R11.2 Nausea with vomiting, unspecified; R61 Generalized hyperhidrosis; M33.20 Polymyositis, organ involvement unspecified; R07.89 Other chest pain; H55.09 Other forms of nystagmus; M06.9 Rheumatoid arthritis, unspecified; R47.1 Dysarthria and anarthria; Z79.899 Other long term (current) drug therapy; Z82.49 Family history of ischemic heart disease and other diseases of the circulatory system; Z82.3 Family history of stroke; R29.700 NIHSS score 0
CPT/HCPCS: 93005; 99285; 96361; 96374; 36415 ×2; 82553 ×2; 82962 ×2; 82550 ×2; 85025; 85027; 85610; 85730; 80048; 80053; 84484 ×2; 83036; 80061; 93306; 93880; 70551; 71045; 70450; 70496; 70498; 93010; 97116; 97161; 92522; 97165; J1644; J1815 ×2; J3490; J2405; J7030 ×2; J7040; G0378

== ENCOUNTER 2020-10-16 21:03 | Emergency (ER) | payer OTHER ==
[2020-10-16] MEDS ORDERED: ONDANSETRON HCL INJ/PF 4 MG/2 ML SDV IV ONE (22:28)
[2020-10-16] MEDS ORDERED: NORMAL SALINE 1000 ML 1,000 ML IV ONE (22:28)
--- NOTE | 2020-10-16 22:30 | ER Document Report ---
ED General - General Chief Complaint: Flu Symptoms Stated Complaint: FLU SYMPTOMS Time Seen by Provider: 10/16/20 22:15 Notes: Patient is a 60-year-old male who comes emergency department for chief complaint of congestion cough, frequent vomiting over the past couple of days, spiking fever 102 F today, and generalized weakness. He does report intermittent vague discomfort in his chest and abdomen. He tested positive for COVID-19 almost 10 days ago, he states he is been taking Zofran at home but still vomiting over the past day or so. He states he was able to eat once over the past day. He is still urinating but this is reduced. He denies headache. Past medical history of type 2 diabetes (oral medication and insulin), rheumatoid arthritis on methotrexate. He denies smoking, COPD, asthma history. He denies cardiac history. - Related Data Allergies/Adverse Reactions: No Known Allergies Allergy (Unverified 02/10/20 18:46) Past Medical History - General Information source: Patient - Social History Smoking Status: Never Smoker Frequency of alcohol use: None Drug Abuse: None Lives with: Family Family History: CAD, CVA, DM, Hypertension. denies: Malignancy - Past Medical History Cardiac Medical History: Reports: Hx Hypertension Denies: Hx Atrial Fibrillation, Hx Congestive Heart Failure, Hx Coronary Artery Disease, Hx Heart Attack, Hx Hypercholesterolemia Pulmonary Medical History: Denies: Hx Asthma, Hx COPD Neurological Medical History: Denies: Hx Seizures Endocrine Medical History: Reports: Hx Diabetes Mellitus Type 2. 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, Denies Hx Gout Skin Medical History: Denies Hx Eczema, Denies Hx Psoriasis Psychiatric Medical History: Reports: Hx Depression Infectious Medical History: Denies: Hx Hepatitis Past Surgical History: Reports: Hx Tonsillectomy, Other - Right patella fracture surgery, multiple foot/toe surgeries - Immunizations Immunizations up to date: Yes Hx Diphtheria, Pertussis, Tetanus Vaccination: Yes Review of Systems - Review of Systems Constitutional: See HPI EENT: No symptoms reported Cardiovascular: No symptoms reported Respiratory: See HPI Gastrointestinal: See HPI Genitourinary: No symptoms reported Male Genitourinary: No symptoms reported Musculoskeletal: No symptoms reported Skin: No symptoms reported Hematologic/Lymphatic: No symptoms reported Neurological/Psychological: No symptoms reported Physical Exam - Vital signs Vitals: Temp Pulse Resp BP Pulse Ox 99.1 F 106 H 22 H 144/82 H 100 10/16/20 21:12 10/16/20 21:12 10/16/20 21:12 10/16/20 21:12 10/16/20 21:12 - Notes Notes: GENERAL: Alert, interactive, mildly ill-appearing but no signs of distress HEAD: Normocephalic, atraumatic. EYES: Pupils equal, round, and reactive to light. Extraocular movements intact. ENT: Oral mucosa dry, tongue midline. Oropharynx unremarkable. Airway patent. Nares patent, sinuses non-tender, ear canals unremarkable, TM's intact. NECK: Full range of motion. Supple. Trachea midline. No lymphadenopathy. LUNGS: Clear to auscultation bilaterally, no wheezes, rales, or rhonchi. No respiratory distress. Non-tender chest wall. Occasional congested cough. HEART: Regular rate and rhythm. No murmur ABDOMEN: Soft, non-tender. Non-distended. No guarding or rigidity. EXTREMITIES: Moves all 4 extremities spontaneously. No edema, normal radial and dorsalis pedis pulses bilaterally. No cyanosis. BACK: no cervical, thoracic, lumbar midline tenderness. No saddle anesthesia, normal distal neurovascular exam. Moves all extremities in full range of motion. NEUROLOGICAL: Alert and oriented x3. Normal speech. Cranial nerves II through XII grossly intact. Strength 5/5 in all extremities. PSYCH: Normal affect, normal mood. SKIN: Warm, dry, normal turgor. No rashes or lesions noted. Course - Re-evaluation Re-evalutation: Patient is reporting nausea and he is somewhat unwell appearing, however his lungs are clear, abdomen soft, his vital signs are unremarkable, and he is nontoxic in appearance. No headache, no nuchal rigidity. No labored breathing. CBC unremarkable, chemistry unremarkable other than mild hyperglycemia without acidosis. Urinalysis unremarkable. Chest x-ray showing possible developing left lower lobe pneumonia. Cultures placed, started on antibiotics. Reevaluated patient. Patient does state he feels improved after nausea medication and IV fluids, he states he is uncertain about going home. However we got the patient up, he ambulated without difficulty, no hypoxia or tachycardia while ambulating. Patient was given p.o. medications and p.o. fluids, he tolerated these without any difficulty. Patient did not vomit during his entire stay here. On reevaluation patient does appear improved. Discussed with patient. Patient will be discharged with symptom management, antibiotics, discussed close follow-up, discussed return precautions. Patient states understanding and agreement. Stable well-appearing at time of discharge. - Vital Signs Vital signs: Temp Pulse Resp BP Pulse Ox 99.1 F 106 H 24 H 130/82 H 97 10/16/20 21:12 10/16/20 21:12 10/17/20 04:01 10/17/20 04:01 10/17/20 04:01 - Laboratory Result Diagrams: 10/16/20 23:05 10/16/20 23:05 Laboratory results interpreted by me: 10/16/20 10/16/20 10/16/20 22:27 23:05 23:05 RBC 4.00 L Hgb 11.9 L Hct 34.2 L RDW 15.0 H Plt Count 116 L Lymph % (Auto) 6.2 L Absolute Lymphs (auto) 0.4 L Seg Neutrophils % 88.7 H VBG pH 7.44 H VBG pCO2 30.6 L Glucose 230 H Calcium 8.3 L Urine Protein 10/17/20 01:50 RBC Hgb Hct RDW Plt Count Lymph % (Auto) Absolute Lymphs (auto) Seg Neutrophils % VBG pH VBG pCO2 Glucose Calcium Urine Protein 100 H - EKG Interpretation by Me Additional EKG results interpreted by me: EKG shows sinus rhythm at a rate of 98, QTc 456, left axis deviation. PACs present. No T wave inversions or ST segment changes in consecutive leads. Discharge - Discharge Clinical Impression: Dehydration, COVID-19 Nausea and vomiting Qualifiers: Vomiting type: unspecified Vomiting Intractability: non-intractable Qualified Code(s): R11.2 - Nausea with vomiting, unspecified Pneumonia Qualifiers: Pneumonia type: due to unspecified organism Laterality: left Lung location: lo wer lobe of lung Qualified Code(s): J18.9 - Pneumonia, unspecified organism Condition: Stable Disposition: HOME, SELF-CARE Instructions: COVID-19 Guidance for Persons Under Investigation, Oral Narcotic Medication ([facility]) Additional Instructions: Your evaluation shows dehydration and possible developing pneumonia on the left lower lung. However your remaining work-up and evaluation is reassuring. Take the Phenergan for nausea, take the famotidine to help with your stomach recovery, start with bland foods, drink plenty of fluid. Take the doxycycline antibiotic as prescribed. If needed use the syrup for cough/pain with precautions listed. Return if you worsen including chest pain, difficulty breathing, uncontrolled vomiting, or any other concerning or worsening symptoms. Prescriptions: Hydrocodone Bit/Homatropine [Hycodan Syrup 5-1.5 mg/5 ml Ud Cup] 5 ml PO Q4HP PRN #120 ml PRN Reason: Famotidine [Pepcid 20 mg Tablet] 20 mg PO BID #12 tablet Promethazine HCl [Phenergan 25 mg Tablet] 25 mg PO Q6H PRN #20 tablet PRN Reason: Doxycycline Hyclate [Vibramycin 100 mg Tablet] 100 mg PO BID 7 Days #14 tablet
--- NOTE | 2020-10-16 23:18 | RADIOLOGY REPORT (SQ) ---
EXAM DESCRIPTION: XR CHEST 1 VIEW COMPLETED DATE/TME: 10/16/2020 22:53 CLINICAL HISTORY: fever, short of breath COMPARISON: 02/10/2020 FINDINGS: Single frontal radiograph view of the chest. Cardiomediastinal silhouette: Normal size and contour. Lungs: Patchy left basilar airspace opacity. No pneumothorax or large effusion. Bones: Mild degenerative endplate spondylosis the spine. Upper abdomen: No abnormality identified. IMPRESSION: 1. Patchy left basilar airspace opacity may represent evolving pneumonic process.
[2020-10-16] MEDS ORDERED: CEFTRIAXONE 1 GM/D5W RTU 1 GM/50 ML RTUPB IV ONE (23:32)
[2020-10-16 23:34] LABS: VENOUS BLOOD BASE EXCESS -2.9 mmol/L; VENOUS BLOOD HCO3 20.3 mmol/L (20-32); VENOUS BLOOD PCO2 30.6 mmHg (35-63); VENOUS BLOOD PH 7.44 (7.30-7.42)
[2020-10-16 23:40] LABS: ABSOLUTE LYMPHOCYTES (AUTO) 0.4 10^3/uL (0.5-4.7); ABSOLUTE MONOCYTES (AUTO) 0.3 10^3/uL (0.1-1.4); ABSOLUTE NEUT (AUTO) 5.3 10^3/uL (1.7-8.2); BASOPHILS % (AUTO) 0.2 % (0-2); EOSINOPHILS % (AUTO) 0.1 % (0-6); HEMATOCRIT 34.2 % (37.9-51.0); HEMOGLOBIN 11.9 g/dL (13.5-17.0); LYMPHOCYTES % (AUTO) 6.2 % (13-45); MEAN CORPUSCULAR HEMOGLOBIN 29.8 pg (27.0-33.4); MEAN CORPUSCULAR HGB CONC 34.8 g/dL (32.0-36.0); MEAN CORPUSCULAR VOLUME 86 fl (80-97); MONOCYTES % (AUTO) 4.8 % (3-13); PLATELET COUNT 116 10^3/uL (150-450); SEGMENTED NEUTROPHILS % (AUTO) 88.7 % (42-78); TOTAL CELLS COUNTED % (AUTO) 100 %
[2020-10-16 23:50] LABS: ALBUMIN 3.5 g/dL (3.5-5.0); ALKALINE PHOSPHATASE 80 U/L (38-126); ANION GAP 9 (5-19); ASPARTATE AMINO TRANSFERASE 31 U/L (17-59); BILIRUBIN,TOTAL 0.6 mg/dL (0.2-1.3); BLOOD UREA NITROGEN 14 mg/dL (7-20); CALCIUM 8.3 mg/dL (8.4-10.2); CARBON DIOXIDE 23 mmol/L (22-30); CHLORIDE 105 mmol/L (98-107); GLUCOSE 230 mg/dL (75-110); POTASSIUM 3.9 mmol/L (3.6-5.0); TOTAL PROTEIN 6.3 g/dL (6.3-8.2)
[2020-10-17] MEDS ORDERED: FAMOTIDINE 20 MG TABLET PO ONE (00:35)
[2020-10-17] MEDS ORDERED: PROMETHAZINE HCL 25 MG TABLET PO ONE (00:35)
[2020-10-17 02:35] LABS: APPEARANCE,URINE SLIGHTLY-CLOUDY; BILIRUBIN,URINE NEGATIVE (NEGATIVE); COLOR,URINE YELLOW; GLUCOSE, URINE NEGATIVE (NEGATIVE); KETONES,URINE NEGATIVE (NEGATIVE); LEUKOCYTE ESTERASE,URINE NEGATIVE (NEGATIVE); NITRITE,URINE NEGATIVE (NEGATIVE); PROTEIN,URINE 100 mg/dL (NEGATIVE); URINE SPECIFIC GRAVITY 1.021; UROBILINOGEN,URINE NEGATIVE mg/dL (<2.0)
[2020-10-17] MEDS ORDERED: DOXYCYCLINE HYCLATE 100 MG TABLET PO ONE (02:55)
[2020-10-17] MEDS ORDERED: NORMAL SALINE 1000 ML 1,000 ML IV ONE (02:55)
[2020-10-17] MEDS ORDERED: MORPHINE SULFATE 10 MG/ML INJ IV ONE (04:01)
[2020-10-17] MEDS ORDERED: DIPHENHYDRAMINE HCL 50 MG/ML VIAL IV ONE (04:07)
[2020-10-17 04:46] VITALS: BP 130/82
--- NOTE | 2020-10-17 12:00 | EKG REPORT ---
SEVERITY:- ABNORMAL ECG - SINUS TACHYCARDIA ATRIAL PREMATURE COMPLEX BORDERLINE LEFT AXIS DEVIATION NONSPECIFIC ST-T CHANGES- ANTEROLATERAL LEADS : Confirmed by: Neil Aparicio MD 17-Oct-2020 11:59:28
== END 2020-10-17 05:08 | disposition home or self-care (01) ==
LOC: ER 21:03
DX: U07.1 COVID-19 (principal); J18.9 Pneumonia, unspecified organism; R11.2 Nausea with vomiting, unspecified; E86.0 Dehydration; R05 Cough; R50.9 Fever, unspecified; R53.1 Weakness; E11.65 Type 2 diabetes mellitus with hyperglycemia; I10 Essential (primary) hypertension; M06.9 Rheumatoid arthritis, unspecified; Z79.4 Long term (current) use of insulin; Z79.899 Other long term (current) drug therapy
CPT/HCPCS: 93005; 99285; 96361; 96375; 96365; 36415; 87040; 83690; 85025; 0241U ×4; 80053; 81001; 84484; 82803; 71045; 93010; J1200; J2270; J2405; J7030 ×2; J0696; C9803; 87804

== ENCOUNTER 2020-10-26 04:35 | Inpatient (IN) | payer OTHER ==
[2020-10-26 07:04] LABS: ABSOLUTE EOSINOPHILS # (AUTO) 0.1 10^3/uL (0.0-0.6); ABSOLUTE LYMPHOCYTES (AUTO) 0.8 10^3/uL (0.5-4.7); ABSOLUTE MONOCYTES (AUTO) 0.1 10^3/uL (0.1-1.4); ABSOLUTE NEUT (AUTO) 4.9 10^3/uL (1.7-8.2); BASOPHILS % (AUTO) 0.3 % (0-2); EOSINOPHILS % (AUTO) 0.9 % (0-6); HEMATOCRIT 32.1 % (37.9-51.0); HEMOGLOBIN 11.1 g/dL (13.5-17.0); LYMPHOCYTES % (AUTO) 13.9 % (13-45); MEAN CORPUSCULAR HEMOGLOBIN 29.2 pg (27.0-33.4); MEAN CORPUSCULAR HGB CONC 34.5 g/dL (32.0-36.0); MEAN CORPUSCULAR VOLUME 85 fl (80-97); MONOCYTES % (AUTO) 1.8 % (3-13); PLATELET COUNT 232 10^3/uL (150-450); RED BLOOD COUNT 3.79 10^6/uL (4.35-5.55); RED CELL DISTRIBUTION WIDTH 14.5 % (11.5-14.0); SEGMENTED NEUTROPHILS % (AUTO) 83.1 % (42-78); TOTAL CELLS COUNTED % (AUTO) 100 %; WHITE BLOOD COUNT 5.9 10^3/uL (4.0-10.5)
[2020-10-26 07:22] LABS: ALBUMIN 3.4 g/dL (3.5-5.0); ALKALINE PHOSPHATASE 78 U/L (38-126); ANION GAP 9 (5-19); ASPARTATE AMINO TRANSFERASE 110 U/L (17-59); BILIRUBIN,DIRECT 0.2 mg/dL (0.0-0.4); BILIRUBIN,TOTAL 0.8 mg/dL (0.2-1.3); BLOOD UREA NITROGEN 16 mg/dL (7-20); CALCIUM 8.7 mg/dL (8.4-10.2); CARBON DIOXIDE 27 mmol/L (22-30); CHLORIDE 105 mmol/L (98-107); GLUCOSE 171 mg/dL (75-110); POTASSIUM 3.6 mmol/L (3.6-5.0); TOTAL PROTEIN 6.6 g/dL (6.3-8.2)
--- NOTE | 2020-10-26 08:16 | EKG REPORT ---
SEVERITY:- ABNORMAL ECG - SINUS RHYTHM PROBABLE LEFT ATRIAL ABNORMALITY NONSPECIFIC T ABNORMALITIES, ANT-LAT LEADS : Confirmed by: Romain Lyle 26-Oct-2020 08:15:33
--- NOTE | 2020-10-26 08:22 | RADIOLOGY REPORT (SQ) ---
EXAM DESCRIPTION: CHEST SINGLE VIEW IMAGES COMPLETED DATE/TIME: 10/26/2020 6:46 am REASON FOR STUDY: SOB COMPARISON: 10/16/2020 EXAM PARAMETERS: NUMBER OF VIEWS: One view. TECHNIQUE: Single frontal radiographic view of the chest acquired. RADIATION DOSE: NA LIMITATIONS: None. FINDINGS: LUNGS AND PLEURA: There are new bile patchy opacities in a perihilar and basilar distribut ion. No pleural effusion or pneumothorax. MEDIASTINUM AND HILAR STRUCTURES: No masses. Contour normal. HEART AND VASCULAR STRUCTURES: Heart normal in size. Normal vasculature. BONES: No acute findings. HARDWARE: None in the chest. OTHER: No other significant finding. IMPRESSION: New patchy bilateral opacities most consistent with infectious/ inflammatory process, vi ral pneumonitis is a consideration. TECHNICAL DOCUMENTATION: JOB ID: [id number] 2010 [employer]- All Rights Reserved Reading location - IP/workstation name: [email or web address]
--- NOTE | 2020-10-26 08:40 | ER Document Report ---
ED Respiratory Problem - General Chief Complaint: Shortness Of Breath Stated Complaint: COVID+ SHORTNESS OF BREATH/CHEST HEAVY Time Seen by Provider: 10/26/20 08:39 Mode of Arrival: Stretcher Information source: Patient TRAVEL OUTSIDE OF THE [place] IN LAST 30 DAYS: No - HPI Notes: 60-year-old male with history of type 2 diabetes presents to ED for evaluation of worsening shortness of breath. Patient was seen on 10/16 and diagnosed with Covid. Reports that he was discharged home with a course of doxycycline which he has completed after being told that he had pneumonia. Patient states that his dyspnea has not improved and he is having increased difficulties with ambulation and shortness of breath. Patient denies a respiratory history. Does have history of hypertension. Notes that he has not been checking his blood sugars as he has not been eating very much. Patient states that he is due to finish his quarantine. However he does not feel as though his Covid has improved. Denies chest pain however reports he feels a heaviness throughout. Fevers to the earlier part of the last week with a T-max of 102. Denies nausea or vomiting. Denies Abdominal pain, dysuria, hematuria, flank pain, or changes in bowel habits. - Related Data Allergies/Adverse Reactions: No Known Allergies Allergy (Unverified 02/10/20 18:46) Past Medical History - Social History Smoking Status: Never Smoker Family History: CAD, CVA, DM, Hypertension. denies: Malignancy - Past Medical History Cardiac Medical History: Reports: Hx Hypertension Denies: Hx Atrial Fibrillation, Hx Congestive Heart Failure, Hx Coronary Artery Disease, Hx Heart Attack, Hx Hypercholesterolemia Pulmonary Medical History: Denies: Hx Asthma, Hx COPD Neurological Medical History: Denies: Hx Seizures Endocrine Medical History: Reports: Hx Diabetes Mellitus Type 2. 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 HENT: Negative for sore throat. Eyes: Negative for visual changes. Cardiovascular: Negative for chest pain. Respiratory: + for shortness of breath. Gastrointestinal: Negative for abdominal pain, vomiting or diarrhea. Genitourinary: Negative for dysuria. Musculoskeletal: Negative for back pain. Skin: Negative for rash. Neurological: Negative for headaches, weakness or numbness. 10 point ROS negative except as marked above and in HPI. Physical Exam - Vital signs Vitals: Temp Pulse Resp BP Pulse Ox 98.6 F 97 19 173/82 H 93 10/26/20 04:52 10/26/20 04:52 10/26/20 04:52 10/26/20 04:52 10/26/20 04:52 General: Alert and oriented x3. Uncomfortable in a stretcher. Tired appearing, increased work of breathing. Skin: Intact without any jaundice, pallor, or erythema. Warm and dry. HEENT: Normocephalic, atraumatic. Pupils are equal round reactive to light and accommodation. Extraocular movements are intact. TMs without erythema or bulging. Canals are clear. Nares patent without any discharge. Teeth in good condition. Pharynx without erythema, edema, or exudates. No tonsillar enlargement. Uvula is midline. Airway is patent. Neck: Supple with no lymphadenopathy. Full range of motion. Heart: Regular rate and rhythm. S1,S2. No murmurs, rubs, or gallops. Lungs: Diminished bilateral bases. No wheezes, rhonchi, rales. Equal chest expansion. No retractions. Abdomen: Soft, nontender to palpation, nondistended. Positive bowel sounds in all 4 quadrants. No hepatosplenomegaly. No masses. No CVA tenderness bilaterally. Neuro: GCS 15. Moving all extremities without discomfort. Extremities: No calf tenderness or edema. No cyanosis or clubbing. Radial and pedal pulses 2+ bilaterally. Brisk capillary refill. Psych: Mood and affect appropriate. Course - Re-evaluation Re-evalutation: 10/26/20 15:41 60-year-old male with history of Covid presents to ED for evaluation of increased shortness of breath and fatigue. Patient has been on home precautions. Patient reports he took a course of doxycycline without improvement. Notes that he also had been on cough suppressants as an ou tpatient. Labs were obtained which show mild anemia of 11.1 and 32.1. Patient's monocytes are 1.8 with segmented neutrophils of 83.1. Patient's AST is elevated at 110 with an ALT of 89. BN peptide is mildly elevated at 186 however this was obtained after he did receive fluids. Reactive protein obtained which is 168.7. Urine shows trace ketones with protein of 100. Patient CTA of the chest was obtained which does not show pulmonary embolism however patient does have bilateral lower lobe infiltrates. Patient has already completed a course of doxycycline improvement. Patient was attempted for ambulation however desaturates into the mid 80s and does not have home oxygen. Patient will most likely are continue monitoring and supplemental oxygen for further management. Patient is in agreement with admission and further management. I called and spoke with Dr. Quick who accepted patient requested that Dr. Mott admit patient. Report to Dr. Mott who will resume care of patient moving forward. 10/26/20 17:39 10/26/20 17:41 - Vital Signs Vital signs: Temp Pulse Resp BP Pulse Ox 99.4 F 89 19 163/84 H 91 L 10/26/20 16:22 10/26/20 16:22 10/26/20 16:22 10/26/20 16:22 10/26/20 16:22 10/26/20 15:39 - Laboratory Result Diagrams: 10/26/20 06:50 10/26/20 06:50 Laboratory results interpreted by me: 10/26/20 10/26/20 10/26/20 06:50 06:50 06:50 RBC 3.79 L Hgb 11.1 L Hct 32.1 L RDW 14.5 H [place] % (Auto) 1.8 L Seg Neutrophils % 83.1 H Glucose 171 H AST 110 H ALT 89 H C-Reactive Protein NT-Pro-B Natriuret Pep 186 H Albumin 3.4 L Urine Protein Urine Ketones Urine Bilirubin Urine Urobilinogen 10/26/20 10/26/20 06:50 08:35 RBC Hgb Hct RDW [place] % (Auto) Seg Neutrophils % Glucose AST ALT C-Reactive Protein 168.7 H NT-Pro-B Natriuret Pep Albumin Urine Protein 100 H Urine Ketones TRACE H Urine Bilirubin SMALL H Urine Urobilinogen 2.0 H - Diagnostic Test Radiology reviewed: Image reviewed Radiology results interpreted by me: 10/26/20 15:40 CTA of the chest is notable for bilateral lower lobe infiltrates. - EKG Interpretation by Me Additional EKG results interpreted by me: 10/26/20 17:41 EKG is notable for sinus rhythm at 93 bpm. UT interval 156. QT of 368. QTC of 458. [place] P 42 QRS 14 T 97 - Transfer of Care Care transferred to following provider: Dr. Mott. Discharge - Discharge Clinical Impression: COVID-19, Hypoxia, Pneumonia due to COVID-19 virus Bilateral pneumonia Qualifiers: Pneumonia type: due to unspecified organism Lung location: unspecified part of lung Qualified Code(s): J18.9 - Pneumonia, unspecified organism Condition: Stable Disposition: ADMITTED INPATIENT Admitting Provider: [facility] (Hospitalist)
[2020-10-26] MEDS ORDERED: NORMAL SALINE 1000 ML 1,000 ML IV ONE (08:57)
[2020-10-26 09:00] LABS: APPEARANCE,URINE SLIGHTLY-CLOUDY; BILIRUBIN,URINE SMALL (NEGATIVE); COLOR,URINE AMBER; GLUCOSE, URINE NEGATIVE (NEGATIVE); KETONES,URINE TRACE mg/dL (NEGATIVE); LEUKOCYTE ESTERASE,URINE NEGATIVE (NEGATIVE); NITRITE,URINE NEGATIVE (NEGATIVE); PROTEIN,URINE 100 mg/dL (NEGATIVE)
--- NOTE | 2020-10-26 11:15 | RADIOLOGY REPORT (SQ) ---
EXAM DESCRIPTION: CTA CHEST IMAGES COMPLETED DATE/TIME: 10/26/2020 11:00 am REASON FOR STUDY: PE COMPARISON: AP view of the chest from 10/26/2020. TECHNIQUE: CT scan of the chest performed using helical scanning technique with dynamic intravenous contrast injection. Images reviewed with lung, soft tissue and bone windows. Reconstructed coronal and sagittal MPR images reviewed. Additional 3 dimensional post-processing performed to develop Maximal Intensity Projection images (SD P). All images stored on PACS. All CT scanners at this facility use dose modulation, iterative reconstruction, and/or weight based d osing when appropriate to reduce radiation dose to as low as reasonably achievable (ALARA). [facility]: Dose Right [facility]: CareDose [facility]: Dose Right [facility]: Teradose 4D [facility]: Matchmaker Videos CONTRAST TYPE AND DOSE: Contrast/concentration: Isovue 350.00 mmol/ml; Total Contrast Delivered: 73. 0 ml; Total Saline Delivered: 47.3 ml Contrast bolus optimized for the pulmonary arteries. RENAL FUNCTION: GFR > 60. RADIATION DOSE: CT Rad equipment meets quality standard of care and radiation dose reduction techniq ues were employed. CTDIvol: 3.3 - 29.1 mGy. DLP: 1052 mGy-cm. LIMITATIONS: None. FINDINGS: LUNGS AND PLEURA: The trachea and main bronchi are patent. There are bilateral basilar pr edominant patchy alveolar opacities. There is no associated bronchiectasis, bronchial wall thickenin g or thickening of the interlobular septa. There is no pleural effusion or pneumothorax. AORTA AND GREAT VESSELS: No aneurysm or dissection. HEART: Cardiomegaly and mild atherosclerotic calcification of the coronary arteries. There is no per icardial effusion. PULMONARY ARTERIES: No emboli. HILAR AND MEDIASTINAL STRUCTURES: There are scattered nonenlarged based on size criteria right upper paratracheal, AP window, sub- carinal and hilar lymph nodes that measure up to 9 mm in short axis bren meter. HARDWARE: None in the chest. UPPER ABDOMEN: No acute abnormality. THYROID AND OTHER SOFT TISSUES: No mass or adenopathy. BONES: No acute abnormality. 3D MIPS: Confirm above findings. OTHER: No other findings. IMPRESSION: Bilateral basilar predominant patchy alveolar opacities. Differential considerations re main multifocal pneumonia, pulmonary edema and ARDS. There is no pulmonary embolus. COMMENT: Quality ID # [id number]: Final reports with documentation of one or more dose reduction techniques (e.g., Automated exposure control, adjustment of the mA and/or kV according to patient size, use of iterative reconstruction technique) TECHNICAL DOCUMENTATION: JOB ID: [id number] 2010 [employer]- All Rights Reserved Reading location - IP/workstation name: [email or web address]
[2020-10-26] MEDS ORDERED: GLUCAGON,HUMAN RECOMB 1 MG INJ IM PRN (13:55)
[2020-10-26] MEDS ORDERED: DEXTROSE 50%-WATER 25 GM/50 ML DISP.SYRIN IV PRN ×2 (13:55)
[2020-10-26] MEDS ORDERED: DEXTROSE 40% GEL 15 GM TUBE PO PRN ×2 (13:55)
[2020-10-26] MEDS ORDERED: ACETAMINOPHEN 325 MG TABLET PO PRN (13:56)
[2020-10-26] MEDS ORDERED: ONDANSETRON HCL INJ/PF 4 MG/2 ML SDV IV PRN (13:56)
[2020-10-26 14:05] LABS: INTERNATIONAL RATION (INR) 1.13; PROTHROMBIN TIME 14.7 SEC (11.4-15.4)
--- NOTE | 2020-10-26 14:12 | PDOC H&P ---
History of Present Illness History of Present Illness: HIGINIO PRATT is a 60 year old male with a history of obesity, insulin-dependent diabetes mellitus, hypertension, hyperlipidemia, and rheumatoid arthritis who presents with progressive shortness of breath. He said that he had been sick now for over 2 weeks. He said he initially went to seek testing for coronavirus a few days before he presented to this ER on the , where he received repeat testing. The one in the ER from the was positive, the patient says that his previous test done a few days prior was also positive. From the ER, he received some cough syrup, some Phenergan, and some doxycycline. He says that over the last several days he has had progressive shortness of breath, primarily when he exerts himself. When he is at rest his oxygen levels are okay and he d oes sort of feels bad. When he gets up to move around his oxygen saturations dropped into the mid upper 80s. He says he can even take a shower without getting short of breath. He says he is not really eaten much in the last couple of days because he cannot smell or taste anything. He has not had any fevers that he knows of. He has had a dry cough. His chest CT was indicative of bilateral groundglass opacities. 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 denies: Malignancy Parental Family History Reviewed: Yes Children Family History Reviewed: Yes Sibling(s) Family History Reviewed.: Yes Medication/Allergy Home Medications: Atorvastatin Calcium [Lipitor 40 mg Tablet] 40 mg PO QHS 02/11/20 Bupropion HCl [Wellbutrin 100 mg Tablet] 100 mg PO BID 02/11/20 Glimepiride [Amaryl 4 mg Tablet] 4 mg PO BID 02/11/20 Insulin Glargine,Hum.rec.anlog [Carlo Borja] 60 unit SQ QAM 02/11/20 Methotrexate Sodium [Rheumatrex 2.5 mg Tablet] 10 mg PO FRSA@2000 02/11/20 Sertraline HCl 100 mg PO BID 02/11/20 Sitagliptin Phos/Metformin HCl [Janumet Xr 50-1,000 mg Tablet] 1 each PO BID 02/11/20 Amlodipine Besylate/Valsartan [Amlodipine-Valsartan 5-160 mg] 1 each PO QPM 10/26/20 Cholecalciferol (Vitamin D3) [Vitamin D3 1000 Unit Tablet] 1,000 unit PO DAILY 10/26/20 Ferrous Sulfate [Feosol 325 mg Tablet] 325 mg PO DAILY 10/26/20 Prednisone [Deltasone 5 mg Tablet] 5 mg PO Q2D 10/26/20 Testosterone [Androgel] 1.25 gm TD DAILY 10/26/20 Allergies/Adverse Reactions: No Known Allergies Allergy (Unverified 02/10/20 18:46) Review of Systems All systems: reviewed and no additional remarkable complaints except as stated - All systems were reviewed and were negative except as noted above in the HPI Physical Exam Vital Signs: Temp Pulse Resp BP Pulse Ox 98.3 F 90 23 H 174/96 H 88 L 10/26/20 08:01 10/26/20 08:01 10/26/20 12:01 10/26/20 11:31 10/26/20 12:01 Intake & Output 10/25/20 10/26/20 10/27/20 06:59 06:59 06:59 Intake Total 1000 Balance 1000 Weight 122.47 kg General appearance: PRESENT: cooperative, disheveled, mild distress, obese Head exam: PRESENT: atraumatic, normocephalic Eye exam: PRESENT: EOMI, PERRLA. ABSENT: conjunctival injection, nystagmus, scleral icterus Ear exam: PRESENT: normal external ear exam Mouth exam: PRESENT: dry mucosa, neck supple Throat exam: ABSENT: post pharyngeal erythema Neck exam: PRESENT: full ROM. ABSENT: carotid bruit, JVD, lymphadenopathy, meningismus, tenderness, thyromegaly Respiratory exam: PRESENT: crackles - Bilateral, symmetrical, unlabored. ABSENT: accessory muscle use, chest wall tenderness, prolonged expiratory phas, rhonchi, tachypnea, wheezes Cardiovascular exam: PRESENT: RRR, +S1, +S2 Pulses: PRESENT: normal carotid pulses Vascular exam: PRESENT: normal capillary refill GI/Abdominal exam: PRESENT: normal bowel sounds, soft. ABSENT: distended, guarding, rebound, tenderness Extremities exam: ABSENT: clubbing, pedal edema Musculoskeletal exam: PRESENT: normal inspection. ABSENT: deformity Neurological exam: PRESENT: awake, oriented to person, oriented to place, oriented to situation, CN II-XII grossly intact. ABSENT: motor sensory deficit Psychiatric exam: PRESENT: flat affect Skin exam: PRESENT: dry, warm Results Laboratory Results: 10/26/20 06:50 10/26/20 06:50 10/26/20 10/26/20 10/26/20 06:50 06:50 08:35 WBC 5.9 RBC 3.79 L Hgb 11.1 L Hct 32.1 L MCV 85 MCH 29.2 MCHC 34.5 RDW 14.5 H Plt Count 232 Seg Neutrophils % 83.1 H Sodium 141.1 Potassium 3.6 Chloride 105 Carbon Dioxide 27 Anion Gap 9 BUN 16 Creatinine 0.86 Est GFR ( Amer) > 60 Glucose 171 H Calcium 8.7 Total Bilirubin 0.8 AST 110 H Alkaline Phosphatase 78 Total Protein 6.6 Albumin 3.4 L Urine Color CORBIN Urine Appearance SLIGHTLY-CLOUDY Urine pH 5.0 Ur Specific Penrose 1.040 Urine Protein 100 H Urine Glucose (UA) NEGATIVE Urine Ketones TRACE H Urine Blood NEGATIVE Urine Nitrite NEGATIVE Ur Leukocyte Esterase NEGATIVE Urine WBC (Auto) 6 Urine RBC (Auto) 3 10/26/20 10/26/20 06:50 06:50 Troponin I < 0.012 NT-Pro-B Natriuret Pep 186 H Impressions: Chest X-Ray 10/26/20 05:17 IMPRESSION: New patchy bilateral opacities most consistent with infectious/ inflammatory process, viral pneumonitis is a consideration. Chest/Abdomen CTA 10/26/20 08:57 IMPRESSION: Bilateral basilar predominant patchy alveolar opacities. Differential considerations remain multifocal pneumonia, pulmonary edema and ARDS. There is no pulmonary embolus. Assessment and Plan - Diagnosis (1) Pneumonia due to COVID-19 virus Is this a current diagnosis for this admission?: Yes (2) Acute hypoxemic respiratory failure Is this a current diagnosis for this admission?: Yes (3) Hypertension Qualifiers: Hypertension type: essential hypertension Is this a current diagnosis for this admission?: Yes (4) Rheumatoid arthritis Qualifiers: Rheumatoid arthritis location: multiple sites Rheumatoid factor presence: unspecified presence Qualified Code(s): M06.9 - Rheumatoid arthritis, unspecified Is this a current diagnosis for this admission?: Yes (5) Type 2 diabetes mellitus with obesity Is this a current diagnosis for this admission?: Yes - Plan Summary Summary: We will start him on Solu-Medrol, zinc, vitamin C, B vitamin complex, and ivermectin. I believe that he needs more aggressive steroid therapy at this point than 6 mg of dexamethasone a day. He is well beyond 2 weeks into his disease course. I think that he is beyond the point at which remdesivir would be effective for him. I discussed with him the fact that use of ivermectin at this point is experimental but he agreed to its use in his case. If he deteriorates from a pulmonary standpoint, which appears very stable right now, I will escalate his steroid therapy. At this point supplemental O2 only as needed. We will get his home meds restarted, including his long-acting insulin. We will start a sliding scale in anticipation that the steroids are to make his blood sugars higher. His blood pressures were high done in the ER but he is not had his morning medications, so we will get those into them as soon as they are verified by the pharmacy. - Time Anticipated Discharge Disposition: Unknown Anticipated Discharge Timeframe: Unknown - Inpatient Certification Based on my medical assessment, after consideration of the patient's c omorbidities, presenting symptoms, or acuity I expect that the services needed warrant INPATIENT care.: Yes I certify that my determination is in accordance with my understanding of Medicare's requirements for reasonable and necessary INPATIENT services [42 CFR 412.3e].: Yes Medical Necessity: Failure to Improve With Outpatient Therapy, Significant Comorbidiites Make Outpatient Treatment Too Risky, Need Close Monitoring Due to Risk of Patient Decompensation, Need For Continuous Telemetry Monitoring, Risk of Complication if Not Cared For in Hospital
[2020-10-26] MEDS ORDERED: CHOLECALCIFEROL (D3) 400 UNIT/ML DROPS 50 ML PO SCH (14:15)
[2020-10-26 14:50] LABS: C-REACTIVE PROTEIN 168.7 mg/L (<10.0)
[2020-10-26] MEDS: IVERMECTIN 3 MG TABLET PO SCH (15:12)
[2020-10-26] MEDS: ASCORBIC ACID 500 MG TABLET PO SCH ×2 (15:12→21:58)
[2020-10-26] MEDS: METHYLPREDNISOLONE INJ 40 MG/1 ML SDV IV SCH ×2 (15:13→21:59)
[2020-10-26] MEDS: ENOXAPARIN SODIUM INJ 40 MG/0.4 ML DISP.SYRIN SUBCUT SCH (15:13)
[2020-10-26] MEDS: VITAMIN B COMPLEX TABLET PO SCH (15:15)
[2020-10-26] MEDS: ZINC SULFATE 220 MG CAPSULE PO SCH (15:15)
[2020-10-26] MEDS: INSULIN LISPRO 100 UNIT/ML 3 ML VIAL SUBCUT SCH ×2 (17:48→21:59)
[2020-10-26] MEDS ORDERED: METFORMIN HCL PO SCH (18:00)
[2020-10-26] MEDS ORDERED: AMLODIPINE PO SCH (18:00)
[2020-10-26] MEDS ORDERED: VALSARTAN PO SCH (18:00)
[2020-10-26] MEDS ORDERED: (PENDING PHARMACY ID) (Sertraline Hcl [Sertraline Hcl] 100 MG Tablet) PO SCH (18:00)
[2020-10-26] MEDS ORDERED: SITAGLIPTIN PHOS PO SCH (18:00)
[2020-10-26] MEDS ORDERED: [UNRECOGNIZED DRUG - OTHER] PO SCH (18:00)
[2020-10-26] MEDS ORDERED: [UNRECOGNIZED DRUG - OTHER] PO SCH (18:00)
[2020-10-26] MEDS: SERTRALINE HCL 50 MG TABLET PO SCH (18:17)
[2020-10-26] MEDS: CHOLECALCIFEROL (D3) 1,000 UNIT (25 MCG) TABLET PO SCH (18:17)
[2020-10-26] MEDS: GLIMEPIRIDE 4 MG TABLET PO SCH (18:23)
[2020-10-26] MEDS: MELATONIN 5 MG TABLET PO SCH (21:58)
[2020-10-26] MEDS: BUPROPION HCL 100 MG TABLET PO SCH (21:59)
[2020-10-27] MEDS: ASCORBIC ACID 500 MG TABLET PO SCH ×4 (01:44→18:44)
[2020-10-27] MEDS: SERTRALINE HCL 50 MG TABLET PO SCH ×2 (05:48→17:43)
[2020-10-27 06:24] LABS: ABSOLUTE LYMPHOCYTES (AUTO) 0.7 10^3/uL (0.5-4.7); ABSOLUTE MONOCYTES (AUTO) 0.1 10^3/uL (0.1-1.4); ABSOLUTE NEUT (AUTO) 4.3 10^3/uL (1.7-8.2); BASOPHILS % (AUTO) 0.1 % (0-2); HEMATOCRIT 31.9 % (37.9-51.0); LYMPHOCYTES % (AUTO) 13.3 % (13-45); MEAN CORPUSCULAR HEMOGLOBIN 29.2 pg (27.0-33.4); MEAN CORPUSCULAR HGB CONC 34.3 g/dL (32.0-36.0); MEAN CORPUSCULAR VOLUME 85 fl (80-97); MONOCYTES % (AUTO) 1.7 % (3-13); PLATELET COUNT 230 10^3/uL (150-450); RED BLOOD COUNT 3.76 10^6/uL (4.35-5.55); RED CELL DISTRIBUTION WIDTH 14.5 % (11.5-14.0); SEGMENTED NEUTROPHILS % (AUTO) 84.9 % (42-78); TOTAL CELLS COUNTED % (AUTO) 100 %; WHITE BLOOD COUNT 5.1 10^3/uL (4.0-10.5)
[2020-10-27 06:51] LABS: ANION GAP 10 (5-19); BLOOD UREA NITROGEN 17 mg/dL (7-20); C-REACTIVE PROTEIN 63.1 mg/L (<10.0); CALCIUM 8.9 mg/dL (8.4-10.2); CARBON DIOXIDE 25 mmol/L (22-30); CHLORIDE 103 mmol/L (98-107); GLUCOSE 227 mg/dL (75-110); POTASSIUM 4.2 mmol/L (3.6-5.0)
[2020-10-27] MEDS ORDERED: INSULN SUBCUT SCH (08:00)
[2020-10-27] MEDS ORDERED: [UNRECOGNIZED DRUG - OTHER] SUBCUT SCH (08:00)
[2020-10-27] MEDS ORDERED: INSULIN GLARGINE HUM REC ANLOG 300 UNIT/ML SUBCUT SCH (08:00)
[2020-10-27] MEDS: INSULIN LISPRO 100 UNIT/ML 3 ML VIAL SUBCUT SCH ×4 (10:33→21:37)
[2020-10-27] MEDS: METHYLPREDNISOLONE INJ 40 MG/1 ML SDV IV SCH ×2 (10:33→21:37)
[2020-10-27] MEDS: VALSARTAN 160 MG TABLET PO SCH (10:34)
[2020-10-27] MEDS: CHOLECALCIFEROL (D3) 1,000 UNIT (25 MCG) TABLET PO SCH (10:34)
[2020-10-27] MEDS: ATORVASTATIN CALCIUM 40 MG TABLET PO SCH (10:34)
[2020-10-27] MEDS: VITAMIN B COMPLEX TABLET PO SCH (10:34)
[2020-10-27] MEDS: AMLODIPINE BESYLATE 5 MG TABLET PO SCH (10:34)
[2020-10-27] MEDS: ENOXAPARIN SODIUM INJ 40 MG/0.4 ML DISP.SYRIN SUBCUT SCH (10:34)
[2020-10-27] MEDS: GLIMEPIRIDE 4 MG TABLET PO SCH ×2 (10:34→17:43)
[2020-10-27] MEDS: BUPROPION HCL 100 MG TABLET PO SCH ×2 (10:34→21:37)
[2020-10-27] MEDS: ZINC SULFATE 220 MG CAPSULE PO SCH (10:34)
[2020-10-27] MEDS: FERROUS SULFATE 325 MG TABLET PO SCH (10:35)
--- NOTE | 2020-10-27 15:37 | PDOC PROGRESS REPORT ---
Subjective Date:: 10/27/20 Subjective:: No adverse events overnight. No new complaints. He has been stable on 2 L per nasal cannula. He feels tired but he said he feels a lot better than he did yesterday. He still having a cough but he says he feels like his chest is clearing up. Reason For Visit: PNEUMONIA DUE TO COVID 19,ACUTE HYPOXEMIC Physical Exam Vital Signs: Temp Pulse Resp BP Pulse Ox 97.8 F 86 20 156/90 H 92 10/27/20 13:09 10/27/20 14:00 10/27/20 13:09 10/27/20 13:09 10/27/20 13:09 Intake & Output 10/26/20 10/27/20 10/28/20 06:59 06:59 06:59 Intake Total 1260 520 Output Total 200 Balance 1060 520 Weight 122.47 kg 125 kg General appearance: PRESENT: cooperative, disheveled, no apparent distress, obese Respiratory exam: PRESENT: crackles - Bilateral, symmetrical, unlabored. ABSENT: accessory muscle use, chest wall tenderness, prolonged expiratory phas, rhonchi, tachypnea, wheezes Cardiovascular exam: PRESENT: RRR, +S1, +S2 Pulses: PRESENT: normal carotid pulses Vascular exam: PRESENT: normal capillary refill GI/Abdominal exam: PRESENT: normal bowel sounds, soft. ABSENT: distended, guarding, rebound, tenderness Extremities exam: ABSENT: clubbing, pedal edema Musculoskeletal exam: PRESENT: normal inspection. ABSENT: deformity Neurological exam: PRESENT: awake, oriented to person, oriented to place, oriented to situation Psychiatric exam: PRESENT: flat affect Skin exam: PRESENT: dry, warm Results Laboratory Results: 10/27/20 05:43 10/27/20 05:43 10/27/20 10/27/20 05:43 05:43 WBC 5.1 RBC 3.76 L Hgb 11.0 L Hct 31.9 L MCV 85 MCH 29.2 MCHC 34.3 RDW 14.5 H Plt Count 230 Seg Neutrophils % 84.9 H Sodium 137.6 Potassium 4.2 Chloride 103 Carbon Dioxide 25 Anion Gap 10 BUN 17 Creatinine 0.75 Est GFR ( Amer) > 60 Glucose 227 H Calcium 8.9 Ferritin 344.00 C-Reactive Protein 63.1 H 10/26/20 10/26/20 06:50 06:50 Troponin I < 0.012 NT-Pro-B Natriuret Pep 186 H Impressions: Chest X-Ray 10/26/20 05:17 IMPRESSION: New patchy bilateral opacities most consistent with infectious/ inflammatory process, viral pneumonitis is a consideration. Chest/Abdomen CTA 10/26/20 08:57 IMPRESSION: Bilateral basilar predominant patchy alveolar opacities. Differential considerations remain multifocal pneumonia, pulmonary edema and ARDS. There is no pulmonary embolus. Assessment and Plan - Diagnosis (1) Pneumonia due to COVID-19 virus Is this a current diagnosis for this admission?: Yes (2) Acute hypoxemic respiratory failure Is this a current diagnosis for this admission?: Yes (3) Hypertension Qualifiers: Hypertension type: essential hypertension Qualified Code(s): I10 - Essential (primary) hypertension Is this a current diagnosis for this admission?: Yes (4) Rheumatoid arthritis Qualifiers: Rheumatoid arthritis location: multiple sites Rheumatoid factor presence: unspecified presence Qualified Code(s): M06.9 - Rheumatoid arthritis, unspecified Is this a current diagnosis for this admission?: Yes (5) Type 2 diabetes mellitus with obesity Is this a current diagnosis for this admission?: Yes - Plan Summary Summary: We will continue Solu-Medrol, zinc, vitamin C, B vitamin complex, and iverm ectin. He seems to be doing well and is feeling a lot better than he was when he came in. He is very comfortable on 2 L per nasal cannula. Blood pressures have improved. Blood sugars are somewhat elevated but this is expected and is being covered by subcutaneous insulin. - Time Time Spent with patient: 15-24 minutes Anticipated Discharge Disposition: Unknown Anticipated Discharge Timeframe: Unknown
[2020-10-27] MEDS: MELATONIN 5 MG TABLET PO SCH (21:37)
[2020-10-28] MEDS: ASCORBIC ACID 500 MG TABLET PO SCH ×4 (00:54→18:48)
[2020-10-28 05:46] LABS: HEMATOCRIT 33.1 % (37.9-51.0); HEMOGLOBIN 11.4 g/dL (13.5-17.0); MEAN CORPUSCULAR HGB CONC 34.3 g/dL (32.0-36.0); MEAN CORPUSCULAR VOLUME 85 fl (80-97); PLATELET COUNT 248 10^3/uL (150-450); RED BLOOD COUNT 3.91 10^6/uL (4.35-5.55); RED CELL DISTRIBUTION WIDTH 14.8 % (11.5-14.0); WHITE BLOOD COUNT 6.6 10^3/uL (4.0-10.5)
[2020-10-28 06:07] LABS: ANION GAP 10 (5-19); BLOOD UREA NITROGEN 24 mg/dL (7-20); C-REACTIVE PROTEIN 29.2 mg/L (<10.0); CARBON DIOXIDE 26 mmol/L (22-30); CHLORIDE 102 mmol/L (98-107); GLUCOSE 274 mg/dL (75-110); POTASSIUM 4.4 mmol/L (3.6-5.0)
[2020-10-28] MEDS: SERTRALINE HCL 50 MG TABLET PO SCH ×2 (06:48→17:40)
[2020-10-28] MEDS: METHYLPREDNISOLONE INJ 40 MG/1 ML SDV IV SCH ×2 (09:32→23:04)
[2020-10-28] MEDS: CHOLECALCIFEROL (D3) 1,000 UNIT (25 MCG) TABLET PO SCH (09:33)
[2020-10-28] MEDS: BUPROPION HCL 100 MG TABLET PO SCH ×2 (09:34→23:03)
[2020-10-28] MEDS: GLIMEPIRIDE 4 MG TABLET PO SCH ×2 (09:35→17:40)
[2020-10-28] MEDS: VITAMIN B COMPLEX TABLET PO SCH (09:35)
[2020-10-28] MEDS: ATORVASTATIN CALCIUM 40 MG TABLET PO SCH (09:35)
[2020-10-28] MEDS: INSULIN LISPRO 100 UNIT/ML 3 ML VIAL SUBCUT SCH ×4 (09:36→23:03)
[2020-10-28] MEDS: ZINC SULFATE 220 MG CAPSULE PO SCH (09:36)
[2020-10-28] MEDS: VALSARTAN 160 MG TABLET PO SCH (09:37)
[2020-10-28] MEDS: AMLODIPINE BESYLATE 5 MG TABLET PO SCH (09:37)
[2020-10-28] MEDS: ENOXAPARIN SODIUM INJ 40 MG/0.4 ML DISP.SYRIN SUBCUT SCH (09:37)
[2020-10-28] MEDS: FERROUS SULFATE 325 MG TABLET PO SCH (09:38)
--- NOTE | 2020-10-28 16:40 | PDOC PROGRESS REPORT ---
Subjective Date:: 10/28/20 Subjective:: No adverse events overnight. His nasal cannula was down to 1 L when I came in t he room nasal cannula really was not even on his nose, and his saturations were 97%. He said he feels a lot better. He was able to get up and walk to the bathroom and back to the bed without getting short of breath. Reason For Visit: PNEUMONIA DUE TO COVID 19,ACUTE HYPOXEMIC Physical Exam Vital Signs: Temp Pulse Resp BP Pulse Ox 99.0 F 103 H 16 161/86 H 97 10/28/20 12:11 10/28/20 14:00 10/28/20 12:11 10/28/20 12:11 10/28/20 12:11 Intake & Output 10/27/20 10/28/20 10/29/20 06:59 06:59 06:59 Intake Total 1260 1870 Output Total 200 Balance 1060 1870 Weight 125 kg 125.2 kg General appearance: PRESENT: cooperative, disheveled, no apparent distress, obese Respiratory exam: PRESENT: crackles - Bilateral and faint, symmetrical, unlabored. ABSENT: accessory muscle use, chest wall tenderness, prolonged expi ratory phas, rhonchi, tachypnea, wheezes Cardiovascular exam: PRESENT: RRR, +S1, +S2 Pulses: PRESENT: normal carotid pulses Vascular exam: PRESENT: normal capillary refill GI/Abdominal exam: PRESENT: normal bowel sounds, soft. ABSENT: distended, guarding, rebound, tenderness Extremities exam: ABSENT: clubbing, pedal edema Musculoskeletal exam: PRESENT: normal inspection. ABSENT: deformity Neurological exam: PRESENT: awake, oriented to person, oriented to place, oriented to situation Psychiatric exam: PRESENT: flat affect Skin exam: PRESENT: dry, warm Results Laboratory Results: 10/28/20 04:57 10/28/20 04:57 10/28/20 10/28/20 04:57 04:57 WBC 6.6 RBC 3.91 L Hgb 11.4 L Hct 33.1 L MCV 85 MCH 29.0 MCHC 34.3 RDW 14.8 H Plt Count 248 Sodium 138.0 Potassium 4.4 Chloride 102 Carbon Dioxide 26 Anion Gap 10 BUN 24 H Creatinine 0.80 Est GFR ( Amer) > 60 Glucose 274 H Calcium 9.0 Ferritin 355.00 C-Reactive Protein 29.2 H 10/26/20 10/26/20 06:50 06:50 Troponin I < 0.012 NT-Pro-B Natriuret Pep 186 H Impressions: Chest X-Ray 10/26/20 05:17 IMPRESSION: New patchy bilateral opacities most consistent with infectious/ inflammatory process, viral pneumonitis is a consideration. Chest/Abdomen CTA 10/26/20 08:57 IMPRESSION: Bilateral basilar predominant patchy alveolar opacities. Differential considerations remain multifocal pneumonia, pulmonary edema and ARDS. There is no pulmonary embolus. Assessment and Plan - Diagnosis (1) Pneumonia due to COVID-19 virus Is this a current diagnosis for this admission?: Yes (2) Acute hypoxemic respiratory failure Is this a current diagnosis for this admission?: Yes (3) Hypertension Qualifiers: Hypertension type: essential hypertension Qualified Code(s): I10 - Essential (primary) hypertension Is this a current diagnosis for this admission?: Yes (4) Rheumatoid arthritis Qualifiers: Rheumatoid arthritis location: multiple sites Rheumatoid factor presence: unspecified presence Qualified Code(s): M06.9 - Rheumatoid arthritis, unspecified Is this a current diagnosis for this admission?: Yes (5) Type 2 diabetes mellitus with obesity Is this a current diagnosis for this admission?: Yes - Plan Summary Summary: We will continue Solu-Medrol, zinc, vitamin C, B vitamin complex, and ivermectin. He seems to be doing well and is feeling a lot better than he was when he came in. He gets his last dose of ivermectin tomorrow and I am hopeful that he can be discharged home afterwards. Blood pressure was elevated, I increased his amlodipine. Blood sugars are somewhat elevated but this is expected and is being covered by subcutaneous insulin. - Time Time Spent with patient: 15-24 minutes Anticipated Discharge Disposition: Home, Self Care Anticipated Discharge Timeframe: within 48 hours
[2020-10-28] MEDS ORDERED: AMLODIPINE BESYLATE 5 MG TABLET PO ONE (18:00)
[2020-10-28] MEDS: MELATONIN 5 MG TABLET PO SCH (23:03)
[2020-10-29] MEDS: ASCORBIC ACID 500 MG TABLET PO SCH ×2 (02:21→06:45)
[2020-10-29 05:15] LABS: ABSOLUTE LYMPHOCYTES (AUTO) 0.8 10^3/uL (0.5-4.7); ABSOLUTE MONOCYTES (AUTO) 0.2 10^3/uL (0.1-1.4); ABSOLUTE NEUT (AUTO) 6.5 10^3/uL (1.7-8.2); BASOPHILS % (AUTO) 0.1 % (0-2); EOSINOPHILS % (AUTO) 0.1 % (0-6); HEMATOCRIT 33.7 % (37.9-51.0); HEMOGLOBIN 11.6 g/dL (13.5-17.0); LYMPHOCYTES % (AUTO) 10.5 % (13-45); MEAN CORPUSCULAR HEMOGLOBIN 29.2 pg (27.0-33.4); MEAN CORPUSCULAR HGB CONC 34.3 g/dL (32.0-36.0); MEAN CORPUSCULAR VOLUME 85 fl (80-97); PLATELET COUNT 246 10^3/uL (150-450); RED BLOOD COUNT 3.96 10^6/uL (4.35-5.55); RED CELL DISTRIBUTION WIDTH 14.7 % (11.5-14.0); SEGMENTED NEUTROPHILS % (AUTO) 86.3 % (42-78); TOTAL CELLS COUNTED % (AUTO) 100 %; WHITE BLOOD COUNT 7.6 10^3/uL (4.0-10.5)
[2020-10-29 05:45] LABS: ANION GAP 13 (5-19); BLOOD UREA NITROGEN 24 mg/dL (7-20); C-REACTIVE PROTEIN 11.8 mg/L (<10.0); CALCIUM 8.9 mg/dL (8.4-10.2); CARBON DIOXIDE 23 mmol/L (22-30); CHLORIDE 102 mmol/L (98-107); GLUCOSE 297 mg/dL (75-110); POTASSIUM 4.4 mmol/L (3.6-5.0)
[2020-10-29] MEDS: SERTRALINE HCL 50 MG TABLET PO SCH (06:46)
[2020-10-29] MEDS: INSULIN LISPRO 100 UNIT/ML 3 ML VIAL SUBCUT SCH (09:08)
[2020-10-29] MEDS: IVERMECTIN 3 MG TABLET PO SCH (09:09)
[2020-10-29] MEDS: BUPROPION HCL 100 MG TABLET PO SCH (09:10)
[2020-10-29] MEDS: VALSARTAN 160 MG TABLET PO SCH (09:10)
[2020-10-29] MEDS: VITAMIN B COMPLEX TABLET PO SCH (09:10)
[2020-10-29] MEDS: CHOLECALCIFEROL (D3) 1,000 UNIT (25 MCG) TABLET PO SCH (09:10)
[2020-10-29] MEDS: ATORVASTATIN CALCIUM 40 MG TABLET PO SCH (09:10)
[2020-10-29] MEDS: ZINC SULFATE 220 MG CAPSULE PO SCH (09:10)
[2020-10-29] MEDS: GLIMEPIRIDE 4 MG TABLET PO SCH (09:10)
[2020-10-29] MEDS: FERROUS SULFATE 325 MG TABLET PO SCH (09:10)
[2020-10-29] MEDS: ENOXAPARIN SODIUM INJ 40 MG/0.4 ML DISP.SYRIN SUBCUT SCH (09:11)
[2020-10-29] MEDS: METHYLPREDNISOLONE INJ 40 MG/1 ML SDV IV SCH (09:11)
[2020-10-29] MEDS ORDERED: AMLODIPINE BESYLATE 10 MG TABLET PO SCH (10:00)
--- NOTE | 2020-10-29 10:12 | Progress Note ---
Provider Note Provider Note: Mr. Smyth has been a patient at [facility] since 10/26/2020, and was discharged 10/29/2020. He was successfully treated for COVID-19. His symptoms began approximately 3 weeks prior to admission. He is cleared to return to work on 11/05/2020. At that point, it will have been over 4 weeks from symptom onset , and based on our current knowledge of the disease, his likelihood of capability to transmit the virus to others will be highly improbable.
[2020-10-29 11:16] VITALS: BP 149/68
--- NOTE | 2020-10-29 16:41 | PDOC DISCHARGE SUMMARY ---
Impression - Admit/DC Date/PCP Admission Date/Primary Care Provider: 10/26/20 14:16 Discharge Date: 10/29/20 - Discharge Diagnosis (1) Pneumonia due to COVID-19 virus Is this a current diagnosis for this admission?: Yes (2) Acute hypoxemic respiratory failure Is this a current diagnosis for this admission?: Yes (3) Hypertension Is this a current diagnosis for this admission?: Yes (4) Rheumatoid arthritis Is this a current diagnosis for this admission?: Yes (5) Type 2 diabetes mellitus with obesity Is this a current diagnosis for this admission?: Yes - Assessment Summary: We will continue Solu-Medrol, zinc, vitamin C, B vitamin complex, and ivermectin. He seems to be doing well and is feeling a lot better than he was when he came in. He gets his last dose of ivermectin tomorrow and I am hopeful that he can be discharged home afterwards. Blood pressure was elevated, I increased his amlodipine. Blood sugars are somewhat elevated but this is expected and is being covered by subcutaneous insulin. - Additional Information Discharge Diet: Cardiac, Diabetic Discharge Activity: Activity As Tolerated, Balance Activity w/Rest Prescriptions: Prednisone See Protocol PO DAILY #42 tab.[email or web address] Home Medications: Atorvastatin Calcium [Lipitor 40 mg Tablet] 40 mg PO DAILY 02/11/20 Bupropion HCl [Wellbutrin 100 mg Tablet] 100 mg PO BID 02/11/20 Glimepiride [Amaryl 4 mg Tablet] 4 mg PO BID 02/11/20 Insulin Glargine,Hum.rec.anlog [Carlo Borja] 58 unit SQ QAM 02/11/20 Methotrexate Sodium [Rheumatrex 2.5 mg Tablet] 10 mg PO FRSA@199902/11/20 Sertraline HCl 100 mg PO BID 02/11/20 Sitagliptin Phos/Metformin HCl [Janumet Xr 50-1,000 mg Tablet] 1 each PO BID 02/11/20 Amlodipine Besylate/Valsartan [Amlodipine-Valsartan 5-160 mg] 1 each PO QPM 10/26/20 Cholecalciferol (Vitamin D3) [Vitamin D3 1000 Unit Tablet] 1,000 unit PO DAILY 10/26/20 Ferrous Sulfate [Feosol 325 mg Tablet] 325 mg PO DAILY 10/26/20 Prednisone [Deltasone 5 mg Tablet] 5 mg PO Q2D 10/26/20 Testosterone [Androgel] 1.25 gm TD DAILY 10/26/20 Ascorbic Acid [Vitamin C 500 mg Tablet] 1,000 mg PO Q6H 10 Days tablet 10/29/20 Cholecalciferol (Vitamin D3) [Vitamin D3 1000 Unit Tablet] 3,000 unit PO DAILY 10 Days tablet 10/29/20 Melatonin [Melatonin 5 mg Tablet] 10 mg PO QHS 10 Days tablet 10/29/20 Prednisone See Protocol PO DAILY #42 tab.ds.pk 10/29/20 Vitamin B Complex [Vitamin B Complex Tablet] 1 tab PO DAILY 10 Days tablet 10/29/20 Zinc Sulfate [Zinc-220 Capsule] 220 mg PO DAILY 10 Days capsule 10/29/20 History of Present Illiness History of Present Illness: HIGINIO PRATT is a 60 year old male with a history of obesity, insulin-dependent diabetes mellitus, hypertension, hyperlipidemia, and rheumatoid arthritis who presents with progressive shortness of breath. He said that he had been sick now for over 2 weeks. He said he initially went to seek testing for coronavirus a few days before he presented to this ER on the , where he received repeat testing. The one in the ER from the was positive, the patient says that his previous test done a few days prior was also positive. From the ER, he received some cough syrup, some Phenergan, and some doxycycline. He says that over the last several days he has had progressive shortness of breath, primarily when he exerts himself. When he is at rest his oxygen levels are okay and he does sort of feels bad. When he gets up to move around his oxygen saturations dropped into the mid upper 80s. He says he can even take a shower without getting short of breath. He says he is not really eaten much in the last couple of days because he cannot smell or taste anything. He has not had any fevers that he knows of. He has had a dry cough. His chest CT was indicative of bilateral groundglass opacities. Hospital Course Hospital Course: The patient was initiated on a treatment regimen consisting of Solu-Medrol, ivermectin, and several vitamins. He had a rapid improvement in 2 days was off oxygen. In 3 days he was able to get up and walk around without getting short of breath. He will be able to resume his usual home medications. I am going to give him a prednisone taper which he will finish at home. He will follow-up with his primary care provider in approximately 1 week. His labs and examination were reassuring and he was discharged in stable condition. I recommended that he pay close attention to his blood sugar while he is on steroids because it will likely keep him somewhat elevated. He verbalizes understanding. Physical Exam Vital Signs: Temp Pulse Resp BP Pulse Ox 97.4 F 82 18 149/68 H 100 10/29/20 11:14 10/29/20 11:14 10/29/20 11:14 10/29/20 11:14 10/29/20 11:14 Intake & Output 10/28/20 10/29/20 10/30/20 06:59 06:59 06:59 Intake Total 1870 860 Balance 1870 860 Weight 125.2 kg 125.1 kg General appearance: PRESENT: cooperative, disheveled, no apparent distress, obese Respiratory exam: PRESENT: Clear to auscultation bilaterally, symmetrical, unlabored. ABSENT: accessory muscle use, chest wall tenderness, prolonged expiratory phas, rhonchi, tachypnea, wheezes, crackles Cardiovascular exam: PRESENT: RRR, +S1, +S2 Pulses: PRESENT: normal carotid pulses Vascular exam: PRESENT: normal capillary refill GI/Abdominal exam: PRESENT: normal bowel sounds, soft. ABSENT: distended, guarding, rebound, tenderness Extremities exam: ABSENT: clubbing, pedal edema Musculoskeletal exam: PRESENT: normal inspection. ABSENT: deformity Neurological exam: PRESENT: awake, oriented to person, oriented to place, oriented to situation Psychiatric exam: PRESENT: flat affect Skin exam: PRESENT: dry, warm Results Laboratory Results: WBC 7.6 10^3/uL (4.0-10.5) 10/29/20 04:44 RBC 3.96 10^6/uL (4.35-5.55) L 10/29/20 04:44 Hgb 11.6 g/dL (13.5-17.0) L 10/29/20 04:44 Hct 33.7 % (37.9-51.0) L 10/29/20 04:44 MCV 85 fl (80-97) 10/29/20 04:44 MCH 29.2 pg (27.0-33.4) 10/29/20 04:44 MCHC 34.3 g/dL (32.0-36.0) 10/29/20 04:44 RDW 14.7 % (11.5-14.0) H 10/29/20 04:44 Plt Count 246 10^3/uL (150-450) 10/29/20 04:44 Lymph % (Auto) 10.5 % (13-45) L 10/29/20 04:44 [place] % (Auto) 3.0 % (3-13) 10/29/20 04:44 Eos % (Auto) 0.1 % (0-6) 10/29/20 04:44 Baso % (Auto) 0.1 % (0-2) 10/29/20 04:44 Absolute Neuts (auto) 6.5 10^3/uL (1.7-8.2) 10/29/20 04:44 Absolute Lymphs (auto) 0.8 10^3/uL (0.5-4.7) 10/29/20 04:44 Absolute Monos (auto) 0.2 10^3/uL (0.1-1.4) 10/29/20 04:44 Absolute Eos (auto) 0.0 10^3/uL (0.0-0.6) 10/29/20 04:44 Absolute Basos (auto) 0.0 10^3/uL (0.0-0.2) 10/29/20 04:44 Seg Neutrophils % 86.3 % (42-78) H 10/29/20 04:44 PT 14.7 SEC (11.4-15.4) 10/26/20 06:50 INR 1.13 10/26/20 06:50 Sodium 137.7 mmol/L (137-145) 10/29/20 04:44 Potassium 4.4 mmol/L (3.6-5.0) 10/29/20 04:44 Chloride 102 mmol/L (98-107) 10/29/20 04:44 Carbon Dioxide 23 mmol/L (22-30) 10/29/20 04:44 Anion Gap 13 (5-19) 10/29/20 04:44 BUN 24 mg/dL (7-20) H 10/29/20 04:44 Creatinine 0.78 mg/dL (0.52-1.25) 10/29/20 04:44 Est GFR ( Amer) > 60 (>60) 10/29/20 04:44 Est GFR (MDRD) Non-Af > 60 (>60) 10/29/20 04:44 Glucose 297 mg/dL (75-110) H 10/29/20 04:44 POC Glucose 283 mg/dL (70-110) H 10/29/20 08:29 Calcium 8.9 mg/dL (8.4-10.2) 10/29/20 04:44 Ferritin 363.00 ng/mL (17.9-464.0) 10/29/20 04:44 Total Bilirubin 0.8 mg/dL (0.2-1.3) 10/26/20 06:50 Direct Bilirubin 0.2 mg/dL (0.0-0.4) 10/26/20 06:50 Neonat Total Bilirubin Not Reportable 10/26/20 06:50 Neonat Direct Bilirubin Not Reportable 10/26/20 06:50 Neonat Indirect Bili Not Reportable 10/26/20 06:50 AST 110 U/L (17-59) H 10/26/20 06:50 ALT 89 U/L (<50) H 10/26/20 06:50 Alkaline Phosphatase 78 U/L (38-126) 10/26/20 06:50 Troponin I < 0.012 ng/mL 10/26/20 06:50 C-Reactive Protein 11.8 mg/L (<10.0) H 10/29/20 04:44 NT-Pro-B Natriuret Pep 186 pg/mL (<125) H 10/26/20 06:50 Total Protein 6.6 g/dL (6.3-8.2) 10/26/20 06:50 Albumin 3.4 g/dL (3.5-5.0) L 10/26/20 06:50 Urine Color CORBIN 10/26/20 08:35 Urine Appearance SLIGHTLY-CLOUDY 10/26/20 08:35 Urine pH 5.0 (5.0-9.0) 10/26/20 08:35 Ur Specific [place] 1.040 10/26/20 08:35 Urine Protein 100 mg/dL (NEGATIVE) H 10/26/20 08:35 Urine Glucose (UA) NEGATIVE mg/dL (NEGATIVE) 10/26/20 08:35 Urine Ketones TRACE mg/dL (NEGATIVE) H 10/26/20 08:35 Urine Blood NEGATIVE (NEGATIVE) 10/26/20 08:35 Urine Nitrite NEGATIVE (NEGATIVE) 10/26/20 08:35 Urine Bilirubin SMALL (NEGATIVE) H 10/26/20 08:35 Urine Urobilinogen 2.0 mg/dL (<2.0) H 10/26/20 08:35 Ur Leukocyte Esterase NEGATIVE (NEGATIVE) 10/26/20 08:35 Urine WBC (Auto) 6 /HPF 10/26/20 08:35 Urine RBC (Auto) 3 /HPF 10/26/20 08:35 Squamous Epi Cells Auto 1 /HPF 10/26/20 08:35 Urine Mucus (Auto) MANY /LPF 10/26/20 08:35 Urine Ascorbic Acid NEGATIVE (NEGATIVE) 10/26/20 08:35 Influenza A (RT-PCR) NEGATIVE (NEGATIVE) 10/26/20 15:25 Influenza B (RT-PCR) NEGATIVE (NEGATIVE) 10/26/20 15:25 RSV (RT-PCR) NEGATIVE (NEGATIVE) 10/26/20 15:25 SARS-CoV-2 Rap RNA(RT-PCR) POSITIVE (NEGATIVE) 10/26/20 15:25 10/26/20 10/26/20 06:50 06:50 Troponin I < 0.012 NT-Pro-B Natriuret Pep 186 H Impressions: Chest X-Ray 10/26/20 05:17 IMPRESSION: New patchy bilateral opacities most consistent with infectious/ inflammatory process, viral pneumonitis is a consideration. Chest/Abdomen CTA 10/26/20 08:57 IMPRESSION: Bilateral basilar predominant patchy alveolar opacities. Differential considerations remain multifocal pneumonia, pulmonary edema and ARDS. There is no pulmonary embolus. Plan Goals: Patient going back to [place] and he will schedule his appointment---DJL Time Spent: Greater than 30 Minutes Stroke Is this a Stroke Patient?: No Acute Heart Failure Is this a Heart Failure Patient?: No
[2020-10-30] MEDS ORDERED: METHOTREXATE SODIUM 2.5 MG TABLET PO SCH (20:00)
[2020-11-01] MEDS ORDERED: IVERMECTIN 3 MG TABLET PO SCH (10:00)
== END 2020-10-29 11:59 | disposition home or self-care (01) | DRG 177 ==
LOC: ER 04:35 → EH 14:16 → 3N 15:44
PROVIDERS: ADMIT Family Medicine; ATTEND Family Medicine
DX: U07.1 COVID-19 (principal); J12.89 Other viral pneumonia; J96.01 Acute respiratory failure with hypoxia; E11.9 Type 2 diabetes mellitus without complications; I10 Essential (primary) hypertension; F32.9 Major depressive disorder, single episode, unspecified; D64.9 Anemia, unspecified; E78.5 Hyperlipidemia, unspecified; E66.9 Obesity, unspecified; M06.9 Rheumatoid arthritis, unspecified; Z79.899 Other long term (current) drug therapy; Z79.52 Long term (current) use of systemic steroids; Z79.84 Long term (current) use of oral hypoglycemic drugs; Z68.32 Body mass index [BMI] 32.0-32.9, adult
CPT/HCPCS: 36415; 71045; 71275; 80048; 80053; 81001; 82728; 82962; 83880; 84484; 85025; 85027; 85610; 86140; 93005; 93010; 96360; 99285; 0241U; C9803; J1650; J1815; J2920; J3490; J7030